=== PATIENT | male | born 1950 | race Caucasian/White ===

== ENCOUNTER 2019-11-22 09:11 | Emergency (ER) | payer OTHER ==
[2019-11-22] MEDS ORDERED: LIDOCAINE 1% MPF 30 ML VIAL ONE (09:54)
--- OUTSIDE RECORDS SUMMARY | 2019-11-22 09:59 | XMS REPORT | Clinical Summary ---
:1950 Author Organization [facility] Address [address] [place] [address] Care Team Providers Name Role Phone Unavailable Primary Care Provider Unavailable Allergies Active Allergy Reactions Severity Noted Date Comments Ciprofloxacin 09/24/2016 Vancomycin Analogues 09/24/2016 Medications Medication Sig Dispensed Refills Start Date End Date Status nystatin-triamcinol Apply 1 application 0 Active one (MYCOLOG II) topically 2 (two) 100,000-0.1 times daily. unit/g-% cream metFORMIN Take 1,000 mg by 0 Act moreno (GLUCOPHAGE) 1000 mouth 2 (two) times MG tablet daily with breakfast and dinner. hydrALAZINE Take 50 mg by mouth 3 0 Active (APRESOLINE) 50 MG (three) times daily. tablet insulin glargine Inject 60 Units 0 Active (LANTUS) 100 subcutaneously every unit/mL injection morning Use as directed . acetaminophen-codei Take 1 tablet by 20 tablet 0 09/26/2016 Active ne (TYLENOL #3) mouth every 6 (six) 300-30 mg per hours as needed for tablet Pain. Max Daily Amount: 4 tablets Active Problems Problem Noted Date Epididymo-orchitis, acute 09/24/2016 Family History Medical History Relation Name Comments Stroke Father Diabetes Mother Hypertension Mother Relation Name Status Comments Father Mother Social History Tobacco Use Types Packs/Day Years Used Date Current Every Day Smoker Cigarettes 0.5 40 Smokeless Tobacco: Never Used Tobacco Cessation: Ready to Quit: No Alcohol Use Drinks/Week oz/Week Comments No Former occasiona l alcohol use, quit 30 years ago Sex Assigned at Date Recorded Not on file Job Start Date Occupation Industry Not on file Not on file Not on file Travel History Travel Start Travel End No recent travel history available. Last Filed Vital Signs Not on file Plan of Treatment Not on file Results Not on fileafter 11/21/2018 Insurance Payer Benefit Plan / Group Subscriber ID Type Phone A ddress MEDICARE MEDICARE A B xxxxxxxxxx Medicare Advance Directives For more information, please contact:[address] [phone] Code Status Date Activated Date Inactivated Comments Full Code 09/24/2016 4:14 AM 09/26/2016 11:47 AM This code status was determined by: Patient
--- OUTSIDE RECORDS SUMMARY | 2019-11-22 10:00 | XMS REPORT | Continuity of Care Document ---
:1950 Author Organization [facility] t Address [address] [place] [address] [address] [place] [address] Care Team Providers Name Role Phone HUBER PATEL Attending Clinician Unavailable EVELINE PATEL Admitting Clinician Unavailable Problems Condition Condition Condition Status Onset Resolution Last Treating Co mments Source Name Details Category Date Date Treatment Clinician Date Epididymo- Epididymo- Disease Active [facility] orchitis, orchitis, 09-24 [facility] - acute acute 00:00: Medical 00 Center Allergies, Adverse Reactions, Alerts Allergy Allergy Status Severity Reaction(s) Onset Inactive Treating Comm ents Source Name Type Date Date Clinician Ciproflo Propensi Active [facility] 09[facility] - adverse 00:00: Medical reaction 00 [place] Vancomyc Propensi Active [facility] to 09-24 [facility] - Analogue adverse 00:00: Medical s reaction 00 [place] Family History Family Member Diagnosis Comments Start Date Stop Date Source Natural father Stroke [facility] Natural mother Diabetes [facility] Natural mother Hypertension [facility] Social History Social Habit Start Date Stop Date Quantity Comments Source History of tobacco Cigarette Smoker [facility] - use [facility] Sex Assigned At [facility] Cigarettes smoked 2016-09-26 2016-09-26 [facility] - current (pack per 00:00:00 00:00:00 Medical Center day) - Reported Cigarette 2016-09-26 2016-09-26 [facility] - pack-years 00:00:00 00:00:00 Medical Center Alcohol Comment 2016-09-24 2016-09-[address] [facility]00 alcohol use, quit [facility] Center 30 years ago Smoking Status Start Date Stop Date Source Current every day smoker 2016-09-26 00:00:[address] [facility] Center Medications Ordered Filled Start Stop Current Ordering Indication Dosage Frequency Signature Comments Components Source Medication Medication Date Date Medication? Clinician (SIG) Name Name acetaminoph Yes 1{tbl} Take [address] en-codeine 4-24 tablet by [place] [facility] - (TYLENOL 00:00: mouth Medical #3) 300-30 00 every 6 Center mg per (six) tablet hours as needed for Pain. Max Daily Amount: 4 tablets nystatin-tr Yes 1{appli Q.5D Apply [address] [facility] iamcinolone 4-22 cation} applicatio Keturah - (MYCOLOG 10:39: n Medical II) 16 topically Center 100,000-0.1 2 (two) unit/g-% times cream daily. metFORMIN Yes 1000mg Take 1,[address] [facility] (GLUCOPHAGE 4-22 mg by [facility] - ) 1000 MG 10:39: mouth 2 Medic al tablet 16 (two) Center times daily with breakfast and dinner. hydrALAZINE Yes 50mg [id number] Take [address] [facility] [address] (APRESOLINE 4-22 [id number] by mouth 3 [facility] - ) 50 MG 10:39: 3D (three) Medical tablet 16 times Center daily. insulin Yes 60U QD Inject 60 [facility] glargine 4-22 Units [facility] - (LANTUS) 10:39: subcutaneo Med ical 100 unit/mL 16 usly every Ce nter injection morning Use as directed . Procedures This patient has no known procedures. Results Test Description Test Time Test Comments Results Result Comments Source TISSUE EXAM 2016-09-30 17:15:00 Test Item Value Reference Range Interpretation Comme nts LAB AP CPT CODE (TIO) (test code = 9649) [id number] POCT-GLUCOSE [id number] 07:33:00 Test Item Value Reference Range Interpretation Comments POC-GLUCOSE METER 119 mg/dL 70-110 H TESTED AT [place] [address] ([facility]IO) (test code = [place] 1538) [id number] BASIC METABOLIC [id number] 04:39:00 Test Item Value Reference Range Interpretation Comments SODIUM (BEAKER) 137 meq/L 136-145 (test code = 381) POTASSIUM (BEAKER) 3.2 meq/L 3.5-5.1 L (test code = 379) CHLORIDE (BEAKER) 107 meq/L 98-107 (test code = 382) CO2 (BEAKER) (test 23 meq/L 22-29 code = 355) BLOOD UREA NITROGEN 10 mg/dL 7-21 (BEAKER) (test code = 354) CREATININE (BEAKER) 0.66 mg/dL 0.57-1.25 (test code = 358) GLUCOSE RANDOM 131 mg/dL 70-105 H (BEAKER) (test code = 652) CALCIUM (BEAKER) 8.1 mg/dL 8.4-10.2 L (test code = 697) EGFR (BEAKER) (test 120 mL/min/1.73 ESTIM ATED GFR IS code = 1092) sq m NOT ACCURATE CREATININE CLEARANCE IN PREDICTING GLOMERULAR FILTRATION RATE . ESTIMATED GFR I S NOT APPLICABLE FOR DIALYSIS PATIEN TS. CBC W/PLT COUNT & AUTO [id number] 04:32:00 Test Item Value Reference Range Interpretation Comments WHITE BLOOD CELL COUNT (BEAKER) 14.4 K/ L 4.0-10.0 H (test code = 775) RED BLOOD CELL COUNT (BEAKER) 4.36 M/ L 4.20-5.80 (test code = 761) HEMOGLOBIN (BEAKER) (test code = 13.1 GM/DL 13.0-16.8 410) HEMATOCRIT (BEAKER) (test code = 40.3 % 40.0-50.0 411) MEAN CORPUSCULAR VOLUME (BEAKER) 92.5 fL 82.0-98.0 (test code = 753) MEAN CORPUSCULAR HEMOGLOBIN 30.1 pg 27.0-33.0 (BEAKER) (test code = 751) MEAN CORPUSCULAR HEMOGLOBIN CONC 32.6 GM/DL 32.0-36.0 (BEAKER) (test code = 752) RED CELL DISTRIBUTION WIDTH 11.7 % 10.3-14.2 (BEAKER) (test code = 412) PLATELET COUNT (BEAKER) (test 223 K/CU MM 150-430 code = 756) MEAN PLATELET VOLUME (BEAKER) 8.7 fL 6.5-10.5 (test code = 754) NUCLEATED RED BLOOD CELLS 0 /100 WBC 0-0 (BEAKER) (test code = 413) NEUTROPHILS RELATIVE PERCENT 77 % (BEAKER) (test code = 429) LYMPHOCYTES RELATIVE PERCENT 14 % (BEAKER) (test code = 430) MONOCYTES RELATIVE PERCENT 8 % (BEAKER) (test code = 431) EOSINOPHILS RELATIVE PERCENT 1 % (BEAKER) (test code = 432) BASOPHILS RELATIVE PERCENT 0 % (BEAKER) (test code = 437) NEUTROPHILS ABSOLUTE COUNT 11.10 K/ L 1.80-8.00 H (BEAKER) (test code = 670) LYMPHOCYTES ABSOLUTE COUNT 1.99 K/ L 1.48-4.50 (BEAKER) (test code = 414) MONOCYTES ABSOLUTE COUNT (BEAKER) 1.11 K/ L 0.00-1.30 (test code = 415) EOSINOPHILS ABSOLUTE COUNT 0.21 K/ L 0.00-0.50 (BEAKER) (test code = 416) BASOPHILS ABSOLUTE COUNT (BEAKER) 0.03 K/ L 0.00-0.20 (test code = 417) 0.00POCT-GLUCOSE [id number] 21:11:00 Test Item Value Reference Range Interpretation Comments POC-GLUCOSE METER 156 mg/dL 70-110 H TESTED AT [place] [address] ([facility]) (test code = [facility] [place] [address]) [id number] POCT-GLUCOSE [id number] 17:56:00 Test Item Value Reference Range Interpretation Comments POC-GLUCOSE METER 301 mg/dL 70-110 H Notified Andrea Jiménez MD/TESTED ([facility]) (test code = AT [place] [address]) [facility] 7[address] 0 POCT-GLUCOSE [id number] 17:47:00 Test Item Value Reference Range Interpretation Comments POC-GLUCOSE METER 266 mg/dL 70-110 H TESTED AT [place] [address] ([facility]) (test code = [facility] [place] [address]) [id number] POCT-GLUCOSE [id number] 13:52:00 Test Item Value Reference Range Interpretation Comments POC-GLUCOSE METER 324 mg/dL 70-110 H Notified R N MD/TESTED (BEAKER) (test code = AT [facility] [address] [facility] [place] [address] 0 URINE [id number] 12:36:00 Test Item Value Reference Range Interpretation Comments CULTURE (BEAKER) (test code = 1095) No growth HEMOGLOBIN [id number] 08:39:00 Test Item Value Reference Range Interpretation Comments HEMOGLOBIN A1C (BEAKER) (test code = 12.1 % 4.3-6.1 H 368) POCT-GLUCOSE [id number] 08:02:00 Test Item Value Reference Range Interpretation Comments POC-GLUCOSE METER 315 mg/dL 70-110 H Notified R N MD/TESTED (BEAKER) (test code = AT [facility] [address] [facility]) [place] [address] 0 CBC W/PLT COUNT & AUTO [id number] 05:04:00 Test Item Value Reference Range Interpretation Comments WHITE BLOOD CELL COUNT (BEAKER) 22.7 K/ L 4.0-10.0 H (test code = 775) RED BLOOD CELL COUNT (BEAKER) 4.56 M/ L 4.20-5.80 (test code = 761) HEMOGLOBIN (BEAKER) (test code = 14.2 GM/DL 13.0-16.8 410) HEMATOCRIT (BEAKER) (test code = 42.0 % 40.0-50.0 411) MEAN CORPUSCULAR VOLUME (BEAKER) 92.1 fL 82.0-98.0 (test code = 753) MEAN CORPUSCULAR HEMOGLOBIN 31.1 pg 27.0-33.0 (BEAKER) (test code = 751) MEAN CORPUSCULAR HEMOGLOBIN CONC 33.8 GM/DL 32.0-36.0 (BEAKER) (test code = 752) RED CELL DISTRIBUTION WIDTH 12.9 % 10.3-14.2 (BEAKER) (test code = 412) PLATELET COUNT (BEAKER) (test 203 K/CU MM 150-430 code = 756) MEAN PLATELET VOLUME (BEAKER) 9.2 fL 6.5-10.5 (test code = 754) NUCLEATED RED BLOOD CELLS 0 /100 WBC 0-0 (BEAKER) (test code = 413) NEUTROPHILS RELATIVE PERCENT 85 % (BEAKER) (test code = 429) LYMPHOCYTES RELATIVE PERCENT 8 % (BEAKER) (test code = 430) MONOCYTES RELATIVE PERCENT 7 % (BEAKER) (test code = 431) EOSINOPHILS RELATIVE PERCENT 0 % (BEAKER) (test code = 432) BASOPHILS RELATIVE PERCENT 0 % (BEAKER) (test code = 437) NEUTROPHILS ABSOLUTE COUNT 19.30 K/ L 1.80-8.00 H (BEAKER) (test code = 670) LYMPHOCYTES ABSOLUTE COUNT 1.85 K/ L 1.48-4.50 (BEAKER) (test code = 414) MONOCYTES ABSOLUTE COUNT (BEAKER) 1.53 K/ L 0.00-1.30 H (test code = 415) EOSINOPHILS ABSOLUTE COUNT 0.03 K/ L 0.00-0.50 (BEAKER) (test code = 416) BASOPHILS ABSOLUTE COUNT (BEAKER) 0.01 K/ L 0.00-0.20 (test code = 417) POCT-GLUCOSE [id number] 01:09:00 Test Item Value Reference Range Interpretation Comments POC-GLUCOSE METER 274 mg/dL 70-110 H TESTED AT [place] [address] ([facility]) (test code = [facility] 1538) [id number] POCT-GLUCOSE [id number] 22:45:00 Test Item Value Reference Range Interpretation Comments POC-GLUCOSE METER 275 mg/dL 70-110 H TESTED AT [place] [address] ([facility]) (test code = [facility] 1538) [id number] POCT-GLUCOSE [id number] 17:06:00 Test Item Value Reference Range Interpretation Comments POC-GLUCOSE METER 245 mg/dL 70-110 H TESTED AT [place] [address] ([facility]) (test code = [facility] 1538) [id number] (MANUAL DIFFERENTIAL)2016-09-24 16:50:00 Test Item Value Reference Range Interpretation Comments NEUTROPHILS - REL (DIFF) (BEAKER) 81 % (test code = 1359) LYMPHOCYTES - REL (DIFF) (BEAKER) 7 % (test code = 1360) MONOCYTES - REL (DIFF) (BEAKER) 7 % (test code = 1361) BANDS - REL (DIFF) (BEAKER) (test 5 % 0-10 code = 1348) NEUTROPHILS - ABS (DIFF) (BEAKER) 18.31 K/ L 1.80-8.00 H (test code = 1365) LYMPHOCYTES - ABS (DIFF) (BEAKER) 1.58 K/ L 1.48-4.50 (test code = 1366) MONOCYTES - ABS (DIFF) (BEAKER) 1.58 K/ L 0.00-1.30 H (test code = 1367) BANDS-ABS (DIFF) (BEAKER) (test 1.1 K/ L 0.0-0.8 H code = 1349) TOTAL COUNTED (BEAKER) (test code 100 = 1351) BANDS + SEGMENTED NEUTROPHILS 19.44 (BEAKER) (test code = 1352) WBC MORPHOLOGY (BEAKER) (test code Normal = 487) PLT MORPHOLOGY (BEAKER) (test code Normal = 486) RBC MORPHOLOGY (BEAKER) (test code Normal = 762) CBC W/PLT COUNT & AUTO [id number] 16:47:00 Test Item Value Reference Range Interpretation Comments WHITE BLOOD CELL COUNT (BEAKER) 22.6 K/ L 4.0-10.0 H (test code = 775) RED BLOOD CELL COUNT (BEAKER) 4.82 M/ L 4.20-5.80 (test code = 761) HEMOGLOBIN (BEAKER) (test code = 14.9 GM/DL 13.0-16.8 410) HEMATOCRIT (BEAKER) (test code = 44.9 % 40.0-50.0 411) MEAN CORPUSCULAR VOLUME (BEAKER) 93.3 fL 82.0-98.0 (test code = 753) MEAN CORPUSCULAR HEMOGLOBIN 31.0 pg 27.0-33.0 (BEAKER) (test code = 751) MEAN CORPUSCULAR HEMOGLOBIN CONC 33.3 GM/DL 32.0-36.0 (BEAKER) (test code = 752) RED CELL DISTRIBUTION WIDTH 13.0 % 10.3-14.2 (BEAKER) (test code = 412) PLATELET COUNT (BEAKER) (test 205 K/CU MM 150-430 code = 756) MEAN PLATELET VOLUME (BEAKER) 9.4 fL 6.5-10.5 (test code = 754) NUCLEATED RED BLOOD CELLS 0 /100 WBC 0-0 (BEAKER) (test code = 413) 0.000.530.000.000.560.000.000.000.00POCT-GLUCOSE [id number] 11:27:00 Test Item Value Reference Range Interpretation Comments POC-GLUCOSE METER 303 mg/dL 70-110 H TESTED AT [facility] [address] (BEAKER) (test code = [place] 1538) [id number] URINALYSIS W/ [id number] 08:29:00 Test Item Value Reference Range Interpretation Comments COLOR (BEAKER) (test code = 470) Yellow CLARITY (BEAKER) (test code = Clear 469) SPECIFIC GRAVITY UA (BEAKER) 1.026 1.001-1.035 (test code = 468) PH UA (BEAKER) (test code = 467) 5.5 5.0-8.0 PROTEIN UA (BEAKER) (test code = 50 mg/dL Negative A 464) GLUCOSE UA (BEAKER) (test code = >1000 mg/dL Negative A 365) KETONES UA (BEAKER) (test code = 100 mg/dL Negative A 371) BILIRUBIN UA (BEAKER) (test code Negative Negative = 462) BLOOD UA (BEAKER) (test code = Trace Negative A 461) NITRITE UA (BEAKER) (test code = Negative Negative 465) LEUKOCYTE ESTERASE UA (BEAKER) Small Negative A (test code = 466) UROBILINOGEN UA (BEAKER) (test 0.2 mg/dL 0.2-1.0 code = 463) RBC UA (BEAKER) (test code = 519) 3 /HPF WBC UA (BEAKER) (test code = 520) 29 /HPF MUCUS (BEAKER) (test code = 1574) Rare SQUAMOUS EPITHELIAL (BEAKER) 1 /HPF (test code = 516) HYALINE CASTS (BEAKER) (test code 3 /LPF = 514) SOURCE(BEAKER) (test code = 2795) POCT-GLUCOSE [id number] 07:44:00 Test Item Value Reference Range Interpretation Comments POC-GLUCOSE METER 273 mg/dL 70-110 H TESTED AT [facility] 67[address] (BEAKER) (test code = [place] 1538) [id number] HEPATIC FUNCTION [id number] 06:36:00 Test Item Value Reference Range Interpretation Comments TOTAL PROTEIN (BEAKER) (test code = 6.4 gm/dL 6.0-8.3 770) ALBUMIN (BEAKER) (test code = 1145) 3.7 g/dL 3.5-5.0 BILIRUBIN TOTAL (BEAKER) (test code 0.7 mg/dL 0.2-1.2 = 377) BILIRUBIN DIRECT (BEAKER) (test 0.3 mg/dL 0.1-0.5 code = 706) ALKALINE PHOSPHATASE (BEAKER) (test 76 U/L 40-150 code = 346) AST (SGOT) (BEAKER) (test code = 16 U/L 5-34 353) ALT (SGPT) (BEAKER) (test code = 18 U/L 6-55 347) BASIC METABOLIC [id number] 06:36:00 Test Item Value Reference Range Interpretation Comments SODIUM (BEAKER) 135 meq/L 136-145 L (test code = 381) POTASSIUM (BEAKER) 3.6 meq/L 3.5-5.1 (test code = 379) CHLORIDE (BEAKER) 105 meq/L 98-107 (test code = 382) CO2 (BEAKER) (test 19 meq/L 22-29 L code = 355) BLOOD UREA NITROGEN 7 mg/dL 7-21 (BEAKER) (test code = 354) CREATININE (BEAKER) 0.66 mg/dL 0.57-1.25 (test code = 358) GLUCOSE RANDOM 276 mg/dL 70-105 H (BEAKER) (test code = 652) CALCIUM (BEAKER) 8.5 mg/dL 8.4-10.2 (test code = 697) EGFR (BEAKER) (test 120 mL/min/1.73 ESTIM ATED GFR IS code = 1092) sq m NOT ACCURATE CREATININE CLEARANCE IN PREDICTING GLOMERULAR FILTRATION RATE . ESTIMATED GFR I S NOT APPLICABLE FOR DIALYSIS PATIEN TS.
--- NOTE | 2019-11-22 10:26 | ER ---
Nurse's Notes [facility] Name: Yaya Estrada Age: 69 yrs Sex: Male : 1950 Arrival Date: 11/22/2019 Time: 09:14 Bed 13 Private MD: Diagnosis: Cutaneous abscess of back [any part, except buttock] Presentation: 11/21 09:41 Chief complaint: Patient states: right upper back cyst that is ongoing for 2 years. sv Reports he has had it drained by the clinic but the pain and swelling are worse. Pt is currently on Bactrim. Coronavirus screen: Proceed with normal triage. Patient denies a cough. Patient denies shortness of breath or difficulty breathing. Patient denies measured and/or subjective temperature greater than 100.4F prior to today's visit. Patient denies travel on a cruise ship or to a country the [facility] currently lists as an affected area. Patient denies contact with known and/or suspected case of COVID-19. Ebola Screen: No symptoms or risks identified at this time. Initial Sepsis Screen: Does the patient meet any 2 criteria? HR > 90 bpm. No. Patient's initial sepsis screen is negative. Does the patient have a suspected source of infection? Yes: Skin breakdown/wound. Risk Assessment: Do you want to hurt yourself or someone else? Patient reports no desire to harm self or others. Onset of symptoms was 2018. 09:41 Method Of Arrival: Ambulatory 09:41 Acuity: NALLELY 3 sv Triage Assessment: 09:41 General: Appears in no apparent distress. uncomfortable, well developed, Behavior is sv calm, cooperative, appropriate for age. Pain: Complains of pain in right subscapular area Pain currently is 8 out of 10 on a pain scale. Pain began 2 years ago Is continuous. Neuro: Level of Consciousness is awake, alert, obeys commands, Oriented to person, place, time, situation, Moves all extremities. Full function Gait is steady, Speech is normal. Respiratory: Airway is patent Respiratory effort is even, unlabored, Respiratory pattern is regular, symmetrical. Derm: Skin is intact, Skin is pink, warm \T\ dry. Abscess located on right subscapular area is golf ball sized, has no drainage, is red, is raised. Musculoskeletal: Range of motion: intact in all extremities. Historical: - Allergies: 09:43 Ciprofloxacin; sv 09:43 Vancomycin; sv - PMHx: 09:43 Diabetes - IDDM; Hypertension; sv - PSHx: 09:43 testicular torsion; sv - Immunization history:: Adult Immunizations up to date, Flu vaccine is not up to date. - Social history:: Smoking status: Patient reports the use of cigarette tobacco products, smokes one-half pack cigarettes per day. Screenin:41 Abuse screen: Denies threats or abuse. Denies injuries from another. Nutritional sv screening: No deficits noted. Tuberculosis screening: No symptoms or risk factors identified. Fall Risk None identified. Assessment: 10:25 Reassessment: Patient appears in no apparent distress at this time. No changes from sv previously documented assessment. Patient and/or family updated on plan of care and expected duration. Pain level reassessed. Patient is alert, oriented x 3, equal unlabored respirations, skin warm/dry/pink. Vital Signs: 09:41 BP 141 / 98; Pulse 94; Resp 16; Temp 98.2; Pulse Ox 97% ; Weight 68.04 kg; Height 5 ft. sv 5 in. (165.10 cm); Pain 8/10; 10:26 BP 133 / 79; Pulse 73; Resp 16; Pulse Ox 97% ; sv 09:41 Body Mass Index 24.96 (68.04 kg, 165.10 cm) sv ED Course: 09:14 Patient arrived in ED. as 09:16 Margie Mcclelland RN is Primary Nurse. sv 09:17 Carina Lloyd FNP-C is PSYCHIATRICP. kb 09:17 Neeraj Villar MD is Attending Physician. kb 09:41 Arm band placed on. sv 09:41 Patient has correct armband on for positive identification. Placed in gown. Bed in low sv position. Call light in reach. Adult w/ patient. Pulse ox on. NIBP on. Door closed. Head of bed elevated. :43 Triage completed. sv 10:25 Assist provider with I \T\ D: of an abscess on right subscapular Set up I\T\D tray. sv Performed by Carina GONZALEZ Wound packed. iodoform gauze, Dressing with 4X4s, tape non-adherent gauze Patient tolerated well. Patient did not have IV access during this emergency room visit. Administered Medications: 10:26 Drug: Lidocaine (1 %) 1 vials {Note: given to Carina HIDE OR SKIN BUFFER for procedure.} Volume: 5 ml; sv Route: Infiltration; Outcome: 10: Discharge ordered by . luis miguel 10:36 Discharged to home ambulatory, with family. sv 10:36 Condition: stable 10:36 Condition: improved 10:36 Discharge instructions given to patient, family, Instructed on discharge instructions, follow up and referral plans. wound care, Demonstrated understanding of instructions, follow-up care, wound care. 10:36 Patient left the ED. sv Signatures: Carina Lloyd, Margie Sanderson RN RN Josefa Umanzor as Corrections: (The following items were deleted from the chart) 10:36 10:25 Assist provider with I \T\ D: of an abscess on right subscapular Set up I\T\D tray. sv Performed by Carina GONZALEZ Wound packed. iodoform gauze, Dressing with 4X4s, tape Patient tolerated well. sv
--- NOTE | 2019-11-22 10:26 | EDPHYS ---
Physician Documentation [facility] Name: Yaya Estrada Age: 69 yrs Sex: Male : 1950 Arrival Date: 11/22/2019 Time: 09:14 Bed 13 Private MD: ED Physician Neeraj Villar HPI: 11/21 09:56 This 69 yrs old Male presents to ER via Ambulatory with complaints of Cyst. kb 09:56 the patient presents with a swollen area of the right subscapular area. Description: kb fluctuant, swollen. Onset: The symptoms/episode began/occurred 3 year(s) ago. Possible cause(s): unknown. Associated signs and symptoms: Pertinent positives: erythema, swelling. Modifying factors: the symptoms are alleviated by nothing, the symptoms are aggravated by pressure. Severity of symptoms: At their worst the symptoms were moderate, in the emergency department the symptoms are unchanged. The patient has not experienced similar symptoms in the past. The patient has not recently seen a physician. Pt reports cyst on back for 3 years. States it popped once about 2 years ago. Came in now because it is starting to get red and it is causing more pain. Historical: - Allergies: 09:43 Ciprofloxacin; sv 09:43 Vancomycin; sv - PMHx: 09:43 Diabetes - IDDM; Hypertension; sv - PSHx: 09:43 testicular torsion; sv - Immunization history:: Adult Immunizations up to date, Flu vaccine is not up to date. - Social history:: Smoking status: Patient reports the use of cigarette tobacco products, smokes one-half pack cigarettes per day. ROS: 09:55 Constitutional: Negative for fever, chills, and weight loss, Cardiovascular: Negative kb for chest pain, palpitations, and edema, Respiratory: Negative for shortness of breath, cough, wheezing, and pleuritic chest pain, Abdomen/GI: Negative for abdominal pain, nausea, vomiting, diarrhea, and constipation, Back: Negative for injury and pain, MS/Extremity: Negative for injury and deformity, Neuro: Negative for headache, weakness, numbness, tingling, and seizure. 09:55 Skin: Positive for abscess, of the right subscapular area. Exam: 09:55 Constitutional: This is a well developed, well nourished patient who is awake, alert, kb and in no acute distress. Head/Face: Normocephalic, atraumatic. Chest/axilla: Normal chest wall appearance and motion. Nontender with no deformity. No lesions are appreciated. Cardiovascular: Regular rate and rhythm with a normal S1 and S2. No gallops, murmurs, or rubs. Normal PMI, no JVD. No pulse deficits. Respiratory: Lungs have equal breath sounds bilaterally, clear to auscultation and percussion. No rales, rhonchi or wheezes noted. No increased work of breathing, no retractions or nasal flaring. Abdomen/GI: Soft, non-tender, with normal bowel sounds. No distension or tympany. No guarding or rebound. No evidence of tenderness throughout. MS/ Extremity: Pulses equal, no cyanosis. Neurovascular intact. Full, normal range of motion. Neuro: Awake and alert, GCS 15, oriented to person, place, time, and situation. Cranial nerves II-XII grossly intact. Motor strength 5/5 in all extremities. Sensory grossly intact. Cerebellar exam normal. Normal gait. 09:55 Skin: abscess, that is moderate sized, golf ball sized, of the right subscapular area, with fluctuance, that is moderate. Vital Signs: 09:41 BP 141 / 98; Pulse 94; Resp 16; Temp 98.2; Pulse Ox 97% ; Weight 68.04 kg; Height 5 ft. sv 5 in. (165.10 cm); Pain 8/10; 10:26 BP 133 / 79; Pulse 73; Resp 16; Pulse Ox 97% ; sv 09:41 Body Mass Index 24.96 (68.04 kg, 165.10 cm) sv MDM: 09:17 Patient medically screened. kb 09:55 Data reviewed: vital signs, nurses notes. Data interpreted: Pulse oximetry: on room air kb is 97 %. Interpretation: normal. 10:25 Counseling: I had a detailed discussion with the patient and/or guardian regarding: the kb historical points, exam findings, and any diagnostic results supporting the discharge/admit diagnosis, the need for outpatient follow up, a general surgeon, to return to the emergency department if symptoms worsen or persist or if there are any questions or concerns that arise at home. 11/21 09:31 Order name: I\T\D Setup; Complete Time: 09:53 kb Administered Medications: 10:26 Drug: Lidocaine (1 %) 1 vials {Note: given to Carina [employer] for procedure.} Volume: 5 ml; sv Route: Infiltration; Disposition: 14:58 Co-signature as Attending Physician, Neeraj Villar MD I agree with the assessment and kdr plan of care. Disposition: 11/22/19 10:26 Discharged to Home. Impression: Cutaneous abscess of back [any part, except buttock]. - Condition is Stable. - Discharge Instructions: Skin Abscess, [id number], Incision and Drainage, Care After. - Medication Reconciliation Form, Thank You Letter, Antibiotic Education, Prescription Opioid Use form. - Follow up: Emergency Department; When: As needed; Reason: Worsening of condition. Follow up: Private Physician; When: 2 - 3 days; Reason: Recheck today's complaints, Continuance of care, Re-evaluation by your physician. Signatures: Carina Lloyd, CARLOS KRISHNAMURTHY-Margie Sena RN RN sv Rittger, Kevin, MD MD [facility] Corrections: (The following items were deleted from the chart) 10:36 10:26 11/22/2019 10:26 Discharged to Home. Impression: Cutaneous abscess of back [any sv part, except buttock]. Condition is Stable. Forms are Medication Reconciliation Form, Thank You Letter, Antibiotic Education, Prescription Opioid Use. Follow up: Emergency Department; When: As needed; Reason: Worsening of condition. Follow up: Private Physician; When: 2 - 3 days; Reason: Recheck today's complaints, Continuance of care, Re-evaluation by your physician. kb
[2019-11-22 10:42] VITALS: TEMP 98.2; O2SAT 97
[2019-11-22 10:43] VITALS: BP 133/79
== END 2019-11-22 10:36 | disposition home or self-care (01) ==
LOC: ER 09:11
PROC: 0J970ZZ Drainage of Back Subcutaneous Tissue and Fascia, Open Approach (ICD-10-PCS; principal; 2019-11-22)
DX: L02.212 Cutaneous abscess of back [any part, except buttock and flank] (principal); Z88.1 Allergy status to other antibiotic agents; Z88.3 Allergy status to other anti-infective agents; F17.210 Nicotine dependence, cigarettes, uncomplicated
CPT/HCPCS: 99284

== ENCOUNTER 2024-06-06 12:41 | Emergency (ER) | payer OTHER ==
[2024-06-06] MEDS ORDERED: MORPHINE 2 MG/ML SYR ONE ×2 (14:12→14:51)
[2024-06-06] MEDS ORDERED: NA CHLORIDE 0.9% 500 ML ONE (14:12)
[2024-06-06 14:34] LABS: Absolute Basophils 0.1 K/uL (0-0.5); Absolute Eosinophils 0.1 K/uL (0-0.5); Absolute Lymphocytes (CBC) 2.1 K/uL (0.7-4.9); Absolute Monocytes 0.6 K/uL (0.1-1.3); Absolute Neutrophil 9.4 K/uL (1.8-8.0); Basophils % 0.7 % (0-1.3); Eosinophils % 1.2 % (0-4.4); Hematocrit 38.4 % (39.6-49.0); Hemoglobin 12.7 g/dL (13.6-17.9); Lymphocytes % 16.9 % (15.3-44.8); MCH 28.9 pg (27.0-35.0); MCHC 33.1 g/dL (32.0-36.0); MCV 87.5 fL (80-100); MPV 8.6 fL (7.6-11.3); Monocytes % 4.7 % (3.3-12.3); Neutrophils % 76.5 % (41.7-73.7); Platelets 348 thou/uL (152-406); RBC Red Blood Cell Count 4.39 M/uL (4.33-5.43); Red Cell Distribution Width 16.2 % (12.1-15.2)
--- NOTE | 2024-06-06 14:35 | RAD REPORT ---
EXAM: CT brain without contrast HISTORY: pain COMPARISON: None TECHNIQUE: Multiple contiguous axial images were obtained and a CT of the brain without contrast. Sag ittal and coronal reformats were performed. One or more of the following dose reduction techniques were used: Automated exposure control, adjust ment of the mA and/or kV according to patient size, and/or iterative reconstruction. FINDINGS: No evidence of hydrocephalus, intracranial hemorrhage, or extra-axial fluid collection. Mild brain atrophy with mild periventricular and deep white matter chronic microvascular ischemic ch anges present. No evidence of midline shift or areas of brain edema. The calvarium is intact. The visualized paranasal sinuses and mastoid air cells are essentially clear . IMPRESSION: No evidence of acute intracranial abnormality. EXAM: CT of the cervical spine without contrast HISTORY: Neck pain, injury pain TECHNIQUE: Multiple contiguous axial images were obtained in a CT of the cervical spine without contr ast. Sagittal and coronal reformats were performed. FINDINGS: 2 mm degenerative anterolisthesis C3 on C4. 2 mm degenerative retrolisthesis C6 on C7. No e vidence of acute fracture or subluxation.. This thinning with small endplate osteophytes lower cervical spine. No prevertebral soft tissue swelling is seen. The posterior facets are well aligned. Normal alignment of the skull base with the cervical spine is seen. The lung apices are unremarkable. IMPRESSION: No evidence of acute osseous abnormality of the cervical spine. Moderate lower cervical spondylosis.
--- NOTE | 2024-06-06 14:44 | RAD REPORT ---
EXAM: CT CHEST, ABDOMEN AND PELVIS WITHOUT CONTRAST CLINICAL INDICATION: PAIN TECHNIQUE: CT chest, abdomen and pelvis was performed without contrast, as per department protocol. A xial, sagittal and coronal reconstructions were obtained. One or more of the following dose reduction techniques were used: Automated exposure control, adjustment of the mA and/or kV according to patient size, and/or iterative reconstruction. Unless otherwise specified, incidental findings do not require dedicated imaging follow-up. Examination is limited by the lack of intravenous contrast material. COMPARISON: 01/19/2023 FINDINGS: LUNGS: No evidence of airspace or interstitial process. No nodules. PLEURA: No pleural effusion. No pneumothorax. MEDIASTINUM AND LYMPH NODES: No mediastinal mass or fluid collection. Normal size mediastinal, hilar, and axillary lymph nodes. OSSEOUS STRUCTURES AND CHEST WALL: Intact. LIVER: Normal in size and contour. No focal lesion or biliary dilatation. Cholecystectomy clips. PANCREAS: No mass, ductal dilation, or levi-pancreatic fluid. SPLEEN: Normal size. No focal lesion. ADRENALS: 37 mm low-density mass seen left adrenal gland, unchanged.. KIDNEYS: Normal size and contour. No hydronephrosis. 23 mm exophytic lesion extending from the latera l margin of the left kidney presumably benign cysts. URINARY BLADDER: Normal contour. Barbosa catheter is in place. GASTROINTESTINAL TRACT: No bowel obstruction, free air, significant free fluid or abscess. APPENDIX: Normal appendix. LYMPH NODES: No lymphadenopathy. MUSCULOSKELETAL: Moderate lumbar degenerative changes are present. Mild anterolisthesis L5 on S1 with bilateral chronic spondylolysis. OTHER: IMPRESSION: No acute abnormalities seen in the chest, abdomen or pelvis.
[2024-06-06 14:48] LABS: Albumin 3.1 g/dL (3.4-5.0); Albumin/Globulin Ratio 0.8 (1.1-1.8); Anion Gap 11.5 mEq/L (5.0-15.0); Bilirubin Total 0.2 mg/dL (0.2-1.0); Potassium 4.5 mEq/L (3.5-5.1); Protein, Total 7.1 g/dL (6.4-8.2)
--- NOTE | 2024-06-06 15:00 | EDPHYS ---
Physician Documentation [facility] Name: Yaya Estrada Age: 74 yrs Sex: Male : 1950 Arrival Date: 06/06/2024 Time: 12:41 Bed 15 Private MD: ED Physician Valentín Tejada HPI: 06/06 14:52 This 74 yrs old Male presents to ER via Wheelchair with complaints of Fall purnima Injury. 14:52 Details of fall: The patient fell from an upright position, while walking. Onset: The purnima symptoms/episode began/occurred just prior to arrival. Associated injuries: The patient sustained injury to the head, neck injury, injury to the chest, injury to the abdomen. Severity of symptoms: At their worst the symptoms were mild, moderate, this morning, in the emergency department the symptoms are unchanged. The patient has experienced similar episodes in the past, a few times. Historical: - Allergies: 12:57 Vancomycin; iw 12:57 Ciprofloxacin; iw - PMHx: 12:57 Diabetes - IDDM; Hypertension; iw - Immunization history:: Adult Immunizations up to date. - Infectious Disease History:: Denies. - Social history:: Smoking status: Patient denies any tobacco usage or history of. ROS: 14:54 Constitutional: Negative for fever, chills, and weight loss, Eyes: Negative for injury, purnima pain, redness, and discharge, ENT: Negative for injury, pain, and discharge, Neck: Negative for injury, pain, and swelling, Cardiovascular: Negative for chest pain, palpitations, and edema, Respiratory: Negative for shortness of breath, cough, wheezing, and pleuritic chest pain, : Negative for injury, bleeding, discharge, and swelling, MS/Extremity: Negative for injury and deformity, Skin: Negative for injury, rash, and discoloration, Psych: Negative for depression, anxiety, suicide ideation, homicidal ideation, and hallucinations, Allergy/Immunology: Negative for hives, rash, and allergies, Endocrine: Negative for neck swelling, polydipsia, polyuria, polyphagia, and marked weight changes, Hematologic/Lymphatic: Negative for swollen nodes, abnormal bleeding, and unusual bruising, 14:54 Abdomen/GI: Positive for abdominal pain, of the anterior aspect of left lateral abdomen, posterior aspect of left lateral abdomen and left upper quadrant, 14:54 Back: Positive for decreased range of motion, pain at rest, pain with movement, 14:54 Neuro: Positive for headache, Exam: 14:54 Constitutional: This is a well developed, well nourished patient who is awake, alert, purnima and in no acute distress. Head/Face: Normocephalic, atraumatic. Eyes: Pupils equal round and reactive to light, extra-ocular motions intact. Lids and lashes normal. Conjunctiva and sclera are non-icteric and not injected. Cornea within normal limits. Periorbital areas with no swelling, redness, or edema. ENT: Nares patent. No nasal discharge, no septal abnormalities noted. Tympanic membranes are normal and external auditory canals are clear. Oropharynx with no redness, swelling, or masses, exudates, or evidence of obstruction, uvula midline. Mucous membranes moist. Neck: Trachea midline, no thyromegaly or masses palpated, and no cervical lymphadenopathy. Supple, full range of motion without nuchal rigidity, or vertebral point tenderness. No Meningismus. Cardiovascular: Regular rate and rhythm with a normal S1 and S2. No gallops, murmurs, or rubs. Normal PMI, no JVD. No pulse deficits. Respiratory: Lungs have equal breath sounds bilaterally, clear to auscultation and percussion. No rales, rhonchi or wheezes noted. No increased work of breathing, no retractions or nasal flaring. Abdomen/GI: Soft, non-tender, with normal bowel sounds. No distension or tympany. No guarding or rebound. No evidence of tenderness throughout. Male : Normal genitalia with no discharge or lesions. Skin: Warm, dry with normal turgor. Normal color with no rashes, no lesions, and no evidence of cellulitis. MS/ Extremity: Pulses equal, no cyanosis. Neurovascular intact. Full, normal range of motion., bilateral aka Neuro: Awake and alert, GCS 15, oriented to person, place, time, and situation. Cranial nerves II-XII grossly intact. Motor strength 5/5 in all extremities. Sensory grossly intact. Cerebellar exam normal. Normal gait. Psych: Awake, alert, with orientation to person, place and time. Behavior, mood, and affect are within normal limits. 14:54 Chest/axilla: Inspection: normal, no acute changes, Palpation: tenderness, that is mild, Axilla: are normal, Lymph nodes: lymphadenopathy is not appreciated, 14:54 Abdomen/GI: Inspection: abdomen appears normal, Bowel sounds: normal, Palpation: mild abdominal tenderness, in the anterior aspect of left lateral abdomen, posterior aspect of left lateral abdomen, left upper quadrant and left lower quadrant, Liver: no appreciated palpable abnormalities, Hernia: not appreciated, 14:54 Musculoskeletal/extremity: Exam is negative for acute changes, abrasion, injury, laceration, Vital Signs: 12:56 BP 138 / 80; Pulse 82; Resp 16; Temp 98.1; Pulse Ox 99% on R/A; Weight 63.5 kg; Height iw 5 ft. 6 in. ; 15:22 BP 144 / 79; Pulse 72; Resp 16; Pulse Ox 99% ; Pain 5/10; ll1 12:56 Body Mass Index 22.60 (63.50 kg, 167.64 cm) iw 15:22 Pain Scale: Adult ll1 MDM: 12:48 Medical Screening Exam initiated purnima 15:02 Differential diagnosis: abrasion, closed head injury, contusion, fracture, multiple purnima trauma, sprain, strain. Differential diagnosis: non-specific abd pain, Blunt Chest Trauma Chest Wall Contusion Chest Wall Injury Pleural Effusion Pneumothorax Pulmonary Contusion Rib Fracture. Data reviewed: vital signs, nurses notes, lab test result(s), radiologic studies, CT scan. Consideration of Admission/Observation Escalation of care including admission/observation considered. I considered the following discharge prescriptions or medication management in the emergency department Medications were administered in the Emergency Department. See MAR. Independent interpretation of the following test(s) in the Emergency Department CT Scan: My interpretation is ct trauma. Test considered but Not performed: Ultrasound no abd usg//////FAST. 06/06 13:59 Order name: CBC with Diff; Complete Time: 14:48 [facility] 06/06 13:59 Order name: Comprehensive Metabolic Panel; Complete Time: 14:52 [facility] 06/06 13:59 Order name: Urinalysis w/ reflexes [facility] 06/06 15:13 Order name: Urine Culture [facility] 06/06 13:59 Order name: CT Traumagram (Head C Spine CAP wo con) [facility] 06/06 13:59 Order name: INCENTIVE SPIROMETRY [facility] 06/06 14:02 Order name: Chest Abd Pelvis Wo Con; Complete Time: 14:48 [facility] 06/06 14:03 Order name: Head C Spine Mpr Wo Con; Complete Time: 14:48 EDMS Administered Medications: 14:32 Drug: morphine IVP or IV 2 mg IVP once over 4 mins Route: IVP; Infused Over: 4 mins; ll1 Site: right forearm; 15:22 Follow up: Response: No adverse reaction; Pain is decreased; RASS: Alert and Calm (0) ll1 14:32 Drug: NS 0.9% IV 500 ml 500 ml IV at 1 bolus once; to be given as a bolus over 30 ll1 minutes Volume: 500 ml; Route: IV; Rate: 1 bolus; Site: right forearm; 15:22 Follow up: Response: No adverse reaction; IV Status: Completed infusion; IV Intake: ll1 500ml 14:54 Drug: morphine IVP or IV 2 mg IVP once over 4 mins {Note: RASS 0, pain 7/10.} Route: ll1 IVP; Infused Over: 4 mins; Site: right forearm; 15:21 Follow up: Response: No adverse reaction; Pain is decreased; RASS: Alert and Calm (0) ll1 15:21 Drug: Hydrocodone-Acetaminophen PO (7.5 mg-325 mg) 1 tabs PO once {Note: RASS 0, pain ll1 6/10.} Route: PO; 15:22 Follow up: Response: No adverse reaction; RASS: Alert and Calm (0) ll1 Disposition Summary: 06/06/24 15:00 Discharge Ordered Notes: Location: Home purnima Problem: new purnima Symptoms: have improved purnima Condition: Stable purnima Diagnosis - Fall on same level, unspecified purnima - Contusion of front wall of thorax purnima - Contusion of back wall of thorax purnima - Abdominal tenderness - left side purnima Followup: purnima - With: Private Physician - When: 2 - 3 days - Reason: Recheck today's complaints, Continuance of care, Re-evaluation by your physician Discharge Instructions: - Discharge Summary Sheet purnima - Abdominal Pain, Adult purnima - Chest Contusion, Adult purnima - Fall Prevention in the Home, Adult purnima - How to Use an Incentive Spirometer purnima - Chest Contusion, Adult, [id number] purnima - Abdominal Pain, Adult, [id number] purnima - Fall Prevention in the Home, Adult, [id number] purnima - Incentive Spirometer Record purnima Forms: - Medication Reconciliation Form purnima - Antibiotic Education purnima - Prescription Opioid Use purnima - Patient Portal Instructions purnima - Leadership Thank You Letter [facility] Prescriptions: - Tylenol 325 mg Oral tablet - take 2 tablets ORAL route every 6 hours as needed; 40 tablet; Refills: 0, [facility] Product Selection Permitted - Motrin IB 200 mg Oral tablet - take 2 tablet ORAL route every 6 hours As needed as needed with food; 40 [facility] tablet; Refills: 0, Product Selection Permitted Signatures: Dispatcher [employer] Valentín Field MD MD cha Williams, Irene, RN RN iw Lewis, Lynsay, RN RN ll1
--- NOTE | 2024-06-06 15:00 | ER ---
Nurse's Notes [facility] Name: Yaya Estrada Age: 74 yrs Sex: Male : 1950 Arrival Date: 06/06/2024 Time: 12:41 Bed 15 Private MD: Diagnosis: Fall on same level, unspecified;Contusion of front wall of thorax;Contusion of back wall of thorax;Abdominal tenderness-left side Presentation: 06/06 12:55 Chief complaint: Patient states: pt tripped over his shoes and fell on right side, iw just wants him checked out and to get xrays , he hit his nose and his ribs. 12:55 Acuity: NALLELY 3 iw 12:56 Method Of Arrival: Wheelchair iw 12:56 Coronavirus screen: At this time, the client does not indicate any symptoms associated iw with coronavirus-19. Ebola Screen: No symptoms or risks identified at this time. Initial Sepsis Screen: Does the patient meet any 2 criteria? No. Patient's initial sepsis screen is negative. Does the patient have a suspected source of infection? No. Patient's initial sepsis screen is negative. Risk Assessment: Do you want to hurt yourself or someone else? Patient reports no desire to harm self or others. Onset of symptoms was June 06, 2024. Historical: - Allergies: 12:57 Vancomycin; iw 12:57 Ciprofloxacin; iw - PMHx: 12:57 Diabetes - IDDM; Hypertension; iw - Immunization history:: Adult Immunizations up to date. - Infectious Disease History:: Denies. - Social history:: Smoking status: Patient denies any tobacco usage or history of. Screenin:25 [facility] ED Fall Risk Assessment (Adult) History of falling in the last 3 months, ll1 including since admission No falls in past 3 months (0 pts) Confusion or Disorientation No (0 pts) Intoxicated or Sedated No (0 pts) Impaired Gait Yes (1 pt) Mobility Assist Device Used Yes (1 pt) Altered Elimination No (0 pt) Score/Fall Risk Level 0 - 2 = Low Risk Maintained a safe environment, Hourly rounding (assess needs \T\ fall precautionary measures) done. Abuse screen: Denies threats or abuse. Nutritional screening: No deficits noted. Tuberculosis screening: No symptoms or risk factors identified. Assessment: 13:53 Reassessment: Dr. Tejada at BS. ll1 14:05 General: Appears uncomfortable, Behavior is calm, cooperative, appropriate for age. ll1 Pain: Complains of pain in face Quality of pain is described as aching. Neuro: Reports headache. EENT: Reports pain in nose. Musculoskeletal: Reports pain in L sided rib pain. 14:45 Reassessment: new Barbosa bag applied to catheter for fresh UA sample. ll1 Vital Signs: 12:56 BP 138 / 80; Pulse 82; Resp 16; Temp 98.1; Pulse Ox 99% on R/A; Weight 63.5 kg; Height iw 5 ft. 6 in. ; 15:22 BP 144 / 79; Pulse 72; Resp 16; Pulse Ox 99% ; Pain 5/10; ll1 12:56 Body Mass Index 22.60 (63.50 kg, 167.64 cm) iw 15:22 Pain Scale: Adult ll1 ED Course: 12:44 Patient arrived in ED. mr 12:48 Valentín Tejada MD is Attending Physician. purnima 12:56 Triage completed. iw 12:57 Arm band placed on. iw 13:29 Svitlana Clark, MARTA is Primary Nurse. ll1 14:08 Inserted saline lock: 22 gauge in right forearm, using aseptic technique. Blood ll1 collected. Flushed with 10 mL NS. 14:08 Initial lab(s) drawn, by me, sent to lab. ll1 14:24 Chest Abd Pelvis Wo Con In Process Unspecified. EDMS 14:25 Head C Spine Mpr Wo Con In Process Unspecified. EDMS 14:30 Patient has correct armband on for positive identification. Provided Education on: ER ll1 procedures and process. 14:54 Urinalysis w/ reflexes Sent. ll1 14:55 Urine collected: Barbosa catheter specimen, shlomo colored, Amount Returned: 200mL. ll1 15:23 IV discontinued, intact, bleeding controlled, No redness/swelling at site. Pressure ll1 dressing applied. 15:25 No provider procedures requiring assistance completed. ll1 Administered Medications: 14:32 Drug: morphine IVP or IV 2 mg IVP once over 4 mins Route: IVP; Infused Over: 4 mins; ll1 Site: right forearm; 15:22 Follow up: Response: No adverse reaction; Pain is decreased; RASS: Alert and Calm (0) ll1 14:32 Drug: NS 0.9% IV 500 ml 500 ml IV at 1 bolus once; to be given as a bolus over 30 ll1 minutes Volume: 500 ml; Route: IV; Rate: 1 bolus; Site: right forearm; 15:22 Follow up: Response: No adverse reaction; IV Status: Completed infusion; IV Intake: ll1 500ml 14:54 Drug: morphine IVP or IV 2 mg IVP once over 4 mins {Note: RASS 0, pain 7/10.} Route: ll1 IVP; Infused Over: 4 mins; Site: right forearm; 15:21 Follow up: Response: No adverse reaction; Pain is decreased; RASS: Alert and Calm (0) ll1 15:21 Drug: Hydrocodone-Acetaminophen PO (7.5 mg-325 mg) 1 tabs PO once {Note: RASS 0, pain ll1 6/10.} Route: PO; 15:22 Follow up: Response: No adverse reaction; RASS: Alert and Calm (0) ll1 Medication: 15:26 VIS not applicable for this client. ll1 Intake: 15:22 IV: 500ml; Total: 500ml. ll1 Outcome: 15:00 Discharge ordered by . purnima 15:25 Discharged to home via wheelchair, [facility] 15:25 Condition: stable 15:25 Discharge instructions given to patient, family, Instructed on discharge instructions, follow up and referral plans. medication usage, Demonstrated understanding of instructions, follow-up care, medications, Prescriptions given X 2, 15:26 Patient left the ED. 1 Signatures: Dispatcher [employer] EDCT Valentín Tejada MD MD cha Rivera, Mary, Reg Reg Vani Oakes RN RN iw Lewis, Lynsay, RN RN 1 Corrections: (The following items were deleted from the chart) 12:56 12:55 Chief complaint: Patient states: pt tripped over his shoes and fell on right iw side, just wants him checked out and to get xrays iw
[2024-06-06 15:07] LABS: Specific Gravity 1.019 (1.005-1.030); Sqamous Epithelial None Seen /HPF (None Seen); Urine Bacteria <20 /HPF (<20); Urine Bilirubin NEGATIVE (Negative); Urine Blood 1+ (Negative); Urine Clarity Extremely Turbid (Clear); Urine Color Yellow (Yellow); Urine Crystals Unidentified Few /HPF (None Seen); Urine Culture Reflex Order REFLEXED; Urine Glucose NEGATIVE (Negative); Urine Ketones NEGATIVE (Negative); Urine Microscopic Reflex YN ORDER UMIC; Urine Mucus Slight /HPF (None Seen); Urine Nitrite 2+ (Negative); Urine Protein 3+ (Negative); Urine Urobilinogen Normal (Normal); Urine WBC >50 /HPF (<5); Urine WBC Clump Rare /HPF (None Seen); Urine Yeast (Budding) Trace /HPF (None Seen)
[2024-06-06] MEDS ORDERED: HYDROCODONE/APAP 7.5/325 MG TAB ONE (15:16)
[2024-06-06 15:42] VITALS: TEMP 98.1; O2SAT 99
[2024-06-06 15:45] VITALS: BP 144/79
== END 2024-06-06 15:26 | disposition home or self-care (01) ==
LOC: ER 12:41
DX: S20.219A Contusion of unspecified front wall of thorax, initial encounter (principal); S20.229A Contusion of unspecified back wall of thorax, initial encounter; W01.0XXA Fall on same level from slipping, tripping and stumbling without subsequent striking against object, initial encounter; R10.819 Abdominal tenderness, unspecified site; I10 Essential (primary) hypertension; E11.9 Type 2 diabetes mellitus without complications; Z88.1 Allergy status to other antibiotic agents
CPT/HCPCS: 96361; 87088; 85025; 81001; 87086; 36415; 87077; 87186; 80053; 70450; 71250; 72125; 74176; 96374; 99284; J2270 ×2; J7040

== ENCOUNTER 2024-07-16 05:34 | Day surgery (SDC) | payer OTHER ==
--- NOTE | 2024-07-03 11:39 | RAD REPORT ---
EXAM: Chest Pa And Lat (2 Views) HISTORY: 74 years Male pre op for day surgery COMPARISON: 01/12/2022 FINDINGS: LUNGS/PLEURA: The lungs are clear. No pleural effusions or pneumothorax. No pulmonary edema. MEDIASTINUM: The mediastinal silhouette is within normal limits CARDIAC: The cardiac silhouette is within normal limits. UPPER ABDOMEN: No significant abnormality. BONES: No acute abnormality. LINES/TUBES/OTHER: N/A IMPRESSION: No evidence of acute cardiopulmonary disease.
[2024-07-03 11:51] LABS: Absolute Basophils 0.1 K/uL (0-0.5); Absolute Eosinophils 0.1 K/uL (0-0.5); Absolute Lymphocytes (CBC) 2.5 K/uL (0.7-4.9); Absolute Monocytes 0.6 K/uL (0.1-1.3); Absolute Neutrophil 9.4 K/uL (1.8-8.0); Basophils % 0.4 % (0-1.3); Eosinophils % 1.1 % (0-4.4); Hematocrit 43.8 % (39.6-49.0); Hemoglobin 14.8 g/dL (13.6-17.9); Lymphocytes % 19.5 % (15.3-44.8); MCH 29.2 pg (27.0-35.0); MCHC 33.9 g/dL (32.0-36.0); MCV 86.1 fL (80-100); MPV 9.3 fL (7.6-11.3); Monocytes % 4.8 % (3.3-12.3); Neutrophils % 74.2 % (41.7-73.7); Nucleated Red Blood Cells % 0.1 % (0-0); PT Prothrombin Time 10.9 SECONDS (9.4-12.5); Platelets 431 thou/uL (152-406); Protime INR 1.04; RBC Red Blood Cell Count 5.09 M/uL (4.33-5.43); Red Cell Distribution Width 15.4 % (12.1-15.2)
[2024-07-03 12:12] LABS: Anion Gap 6.5 mEq/L (5.0-15.0); Potassium 4.5 mEq/L (3.5-5.1)
--- NOTE | 2024-07-09 12:40 | EKG ---
Test Date: 2024-07-03 Test Time: 11:47:33 Heel Seat Filler: VIRGEN MEASUREMENT RESULTS: Intervals: Rate: 71 CT: 168 QRSD: 100 QT: 402 QTc: 436 [place]: P: 22 CT: 168 QRS: 62 T: -17 INTERPRETIVE STATEMENTS: Normal sinus rhythm Cannot rule out Inferior infarct, age undetermined Abnormal ECG Compared to ECG 08/11/2017 14:47:17 Myocardial infarct finding now present Electronically Signed On 07-09-24 12:24:10 [employer]OYEE [employer]ATIONS CONSULTANT by Raghavendra Lino
[~2024-07-16 05:34] MED LIST: CEFEPIME 1 GM/VIAL ONE; NA CHLORIDE 0.9% 100 ML ONE
[2024-07-16] MEDS ORDERED: NA CHLORIDE 0.9% 100 ML ONE (05:48)
[2024-07-16] MEDS: NA CHLORIDE 0.9% 1,000 ML ONE (06:00)
[2024-07-16] MEDS: CEFEPIME 1 GM/VIAL ONE (06:05)
[2024-07-16] MEDS ORDERED: ONDANSETRON 4 MG/2 ML VIAL ONE (07:12)
[2024-07-16] MEDS ORDERED: MIDAZOLAM HCL 2 MG/2 ML INJ ONE (07:12)
[2024-07-16] MEDS ORDERED: FENTANYL CITR 100 MCG/2 ML ONE (07:12)
[2024-07-16] MEDS ORDERED: propofoL 200 MG/20 ML VIAL IV ONE (07:12)
[2024-07-16] MEDS: GENTAMICIN 80 MG/100 ML BAG 160 MG/200 ML BAG IV ONE (07:50)
[2024-07-16] MEDS ORDERED: EPHEDRINE SULF 50 MG/ML VIAL ONE (08:08)
--- NOTE | 2024-07-16 09:20 | P.OP ---
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 He was found to have large volume incomplete emptying and eventually a catheter was placed. Additionally, he had issues with recurrent urinary tract infections, and cystoscopy revealed the presence of a foreign body in his bladder. Procedure note: The patient was consented in the preoperative holding area before being transferred to the operative suite where general anesthesia was induced. He had been given cefepime 1 g IV since Monday, 4 days prior to surgery today. He was given an additional 1 g cefepime IV today as well as gentamicin 160 mg IV for antimicrobial prophylaxis. Pneumoboots were provided for DVT prophylaxis. He was placed in the lithotomy position, padded and secured to the table appropriately. The indwelling urethral Barbosa catheter was removed. His genitalia was prepped with Hibiclens and draped in standard fashion. The case has begun using a 22 American rigid cystoscope to traverse the urethra and into the bladder with ease. The foreign bodies in his bladder were again appreciated, and one of them was small enough for me to irrigate via the cystoscope and remove. The other required use of the stone ore crusher device to grasp and break apart and remove in pieces. While calcified in appearance, the foreign body was actually soft and likely the source of persistent infection. As a result, once all the foreign bodies had been removed, I irrigated his bladder via the cystoscope to clear any other traces of bacteria from within his urine. I then remove the cystoscope and passed the 20 American UroLift sheath and visual obturator into his bladder with ease. I surveyed the prostatic urethra on the way end and identified the presence of nodular adenoma that was obstructing the prostatic urethral lumen. I then switched the UroLift visual obturator for the first implant delivery device. This first implant I targeted at the patient's left side of the bladder neck about 1.5 to 2 cm distal to the bladder neck opening. As there was nodular adenoma that was somewhat firm, I utilized the device angled at around a 70 degrees upward angle to grasp the adenoma and elevate it laterally. In this process, I compressed the tissue about 15 degrees before pulling the trigger delivering the needle through the substance of the prostate. I then further compressed the adenoma to ensure the needle tip exited the capsular surface of the prostate. A second pole of the trigger did deployed the capsular tab and partially retract the needle. I then pulled the trigger a third time completely retracting the needle and beginning to tension the suture. I then advanced the scope back toward the midline and then 2 to 3 mm toward the bladder neck opening until the white line of the monofilament was centered in the delivery bay. At this point, I pulled the trigger a fourth time deploying the urethral end piece which did nicely lateralized and embedded within the prostate tissue with several millimeters of prostate tissue beyond it at the bladder neck. Because it did nicely lateralized the prostate tissue at the bladder neck on the left side, I then turned my attention to the patient's right side. I similarly placed an additional implant about 1.5 to 2 cm distal to the bladder neck opening on the right at around the 9 o'clock position which did beautifully open the bladder neck. I then surveyed the channel created using a visual obturator and then placed an additional implant at the apex on the left at around the 2 o'clock position. A contralateral implant was placed on the right at around the 10 o'clock position. I again surveyed the channel created, and there was residual adenoma emanating largely from the patient's left lateral wall between the apex and the base implants. Because this adenoma was somewhat nodular, I first targeted an implant in the mid zone of the prostate at around the 3 to 4 o'clock position, again angled around 70 degrees upward to elevate the adenoma. This fifth implant did nicely lateralized the tissue in that location, and I surveyed the channel again using a visual obturator. There was still some residual adenomatous intrusion emanating from the patient's left lateral wall somewhat above the mid gland implant but also with some apical mid gland intrusion. As a result, I targeted the sixth implant in the mid apical region superior to the mid gland implant to try to achieve both stacking function and management of the apical mid gland intrusion. I was able to beautifully lateralized the tissue in that location making it the sixth and final implant placed, because when I surveyed the channel created again using the visual obturator, with the bladder completely decompressed and no fluid inflow, a beautiful continuous anterior channel was present from the verumontanum into the bladder neck. As a result, I left his bladder full before removing the UroLift sheath and visual obturator. I then replaced a new 18 American Barbosa catheter into his bladder with ease. 15 cc of sterile water was placed in the balloon. The catheter was allowed to decompress and the drainage was crystal clear. It was then connected to a leg bag, and he was taken out of the lithotomy position before being awakened from general anesthesia. He was then transferred to the recovery room in good condition. Complications: None Discharge disposition: Since he is scheduled to receive another 2 days of IV cefepime, I will recommend him to undergo voiding trial tomorrow in the day surgery area. I will ask the nurses to retrograde fill his bladder with 150 to 200 cc sterile H2O/NS and give him an active voiding trial. Per routine, he must void over 50% of the volume instilled or a catheter should be reinserted. Subsequent follow-up should be established in about 1 month per routine. Should he fail to void successfully, urodynamics should be arranged, and if possible, completed prior to follow-up..
[2024-07-16] MEDS: PHENAZOPYRIDINE 100MG TAB PO ONE (10:28)
[2024-07-16] MEDS: OXYBUTYNIN ER 5 MG TAB PO ONE (10:28)
[2024-07-16 12:21] VITALS: BP 130/65; O2SAT 98
[2024-07-16 12:22] VITALS: TEMP 97
== END 2024-07-16 10:46 | disposition home or self-care (01) ==
LOC: OR 05:34
PROVIDERS: ATTEND Urology
PROC: 0TCB8ZZ Extirpation of Matter from Bladder, Via Natural or Artificial Opening Endoscopic (ICD-10-PCS; principal; 2024-07-16 07:30)
PROC: 0T7D8DZ Dilation of Urethra with Intraluminal Device, Via Natural or Artificial Opening Endoscopic (ICD-10-PCS; 2024-07-16 07:30)
DX: N40.1 Benign prostatic hyperplasia with lower urinary tract symptoms (principal); T19.1XXA Foreign body in bladder, initial encounter; N13.8 Other obstructive and reflux uropathy; R33.9 Retention of urine, unspecified; Z87.440 Personal history of urinary (tract) infections
CPT/HCPCS: 93005; 87088; 85025; 87086; 80048; 36415; 85610; 82947 ×2; 87077 ×3; 87186 ×3; 71046; 52310; 52441; 52442 ×5; J2704; J3010; J2405; J7030; J1580; J0692 ×2; J2250

== ENCOUNTER 2025-02-16 14:13 | Inpatient (IN) | payer OTHER ==
[2025-02-16] MEDS ORDERED: ACETAMINOPHEN 500 MG TAB PO PRN (18:36)
[2025-02-16] MEDS ORDERED: ONDANSETRON 4 MG (ODT) TAB PO PRN (18:41)
[2025-02-16] MEDS: DOCUSATE NA 100 MG CAP PO SCH (20:47)
[2025-02-16] MEDS: Meropenem 1,000 MG in NA CHLORIDE 0.9% 100 ML IV SCH (20:47)
[2025-02-16] MEDS: AMINO ACIDS/PROTEIN HYDROLYS 30 ML LIQUID.PKT PO SCH (20:47)
[2025-02-16] MEDS: TICAGRELOR 90 MG TABLET PO SCH (20:47)
[2025-02-16] MEDS: HYDROCODONE/APAP 7.5/325 MG TAB PO PRN (20:48)
[2025-02-16] MEDS: INSULIN REGULAR (HUMAN) 100 UNIT/ML SQ SCH (20:48)
[2025-02-16] MEDS: INSULIN GLARGINE 100 UNIT/ML SQ SCH (20:48)
[2025-02-16 21:23] VITALS: BMI 29.3
[2025-02-17] MEDS ORDERED: TAMSULOSIN 0.4 MG SR CAP PO SCH (01:00)
[2025-02-17 05:22] LABS: Sqamous Epithelial None Seen /HPF (None Seen); Urine Culture Reflex Order NOT NEEDED; Urine Microscopic Reflex YN ORDER UMIC
[2025-02-17 05:52] LABS: Absolute Lymphocytes (CBC) 1.7 K/uL (0.7-4.9); Hematocrit 23.0 % (39.6-49.0); Hemoglobin 7.6 g/dL (13.6-17.9); MCH 28.4 pg (27.0-35.0); MCHC 33.2 g/dL (32.0-36.0); MCV 85.5 fL (80-100); MPV 6.9 fL (7.6-11.3); Nucleated RBC Absolute Count 0.0 (0-0); Nucleated Red Blood Cells % 0.1 % (0-0); RBC Red Blood Cell Count 2.69 M/uL (4.33-5.43); White Blood Count 12.40 thou/uL (4.3-10.9)
[2025-02-17 06:23] LABS: Albumin 2.1 g/dL (3.4-5.0); Anion Gap 9.3 mEq/L (5.0-15.0); BUN Blood Urea Nitrogen 16.0 mg/dL (7-18); Glucose Level 119.0 mg/dL (74-106); Magnesium 2.2 mg/dL (1.6-2.4); Potassium 3.3 mEq/L (3.5-5.1); Prealbumin 12.6 mg/dL (20-40)
[2025-02-17] MEDS: ASPIRIN 81 MG CHEWABLE TABLET PO SCH (08:28)
[2025-02-17] MEDS: ATORVASTATIN 80 MG TAB PO SCH (08:28)
[2025-02-17] MEDS: AMLODIPINE 10 MG TAB PO SCH (08:28)
[2025-02-17] MEDS: FINASTERIDE 5 MG TAB PO SCH (08:28)
[2025-02-17] MEDS: CITALOPRAM 10 MG TABLET PO SCH (08:28)
[2025-02-17] MEDS: NICOTINE 14 MG/PAT TD SCH (08:28)
[2025-02-17] MEDS: AZITHROMYCIN IV 250 MG in NA CHLORIDE 0.9% 250 ML IVPB SCH (08:29)
[2025-02-17] MEDS: HEPARIN 5000 UNIT/ML 1 ML VIAL SQ SCH (08:29)
[2025-02-17] MEDS: GABAPENTIN 100 MG CAP PO SCH (20:00)
[2025-02-17] MEDS: TAMSULOSIN 0.4 MG SR CAP PO SCH (20:00)
--- NOTE | 2025-02-18 04:48 | HP ---
Date of Admission: 02/16/2025 Time: 1 p.m. Chief Complaint: "I had my right foot just cut off. I need to get stronger." History Of Present Illness: Mr. Estrada is a 75-year-old patient with diabetes mellitus, diabetic neuropathy, hypertension, dyslipidemia, who has had gangrene of the right toe for approximately 1 mon , which was unsuccessfully treated conservatively. He was eventually seen in the emergency departm ent and was diagnosed with osteomyelitis and to save the lower extremity proximally. 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 His admission did confirm the osteomyelitis. He had leukoc ytosis, thrombocytosis, and of course peripheral arterial disease along with issues as mentioned incl uding urinary retention and pneumonia. During hospitalization, he did complete clindamycin, linezolid, antibiotics and was switched over to meropenem and azithromycin for pneumonia. Blood sugars were managed with sliding scale. Morphine an d [place] were used for pain. He had a WATSON drain placed. He was seen by the [facility] and had recanalization of the distal superficial femoral artery. As a result, he does have an acute surgical followup requirement to the right foot and the drain placement and his re cent angioplasty site. Furthermore, his complex medical condition requires him to be carefully monit ored. While in the acute care floor, his course was still complicated by significant decreased physical fun ctioning; decreased mobility, where he previously was able to ambulate around his apartment with a fr ont wheeled walker; able to transfer between bedroom, bathroom, kitchen and ambulated about 50 feet. He was previously independent with showering, dressing, and basic activities of daily living. His w latisha does stay overnight with him despite residing in a separate home. Currently, he is at a moderate assistance to contact guard assistance level for bed mobility, moderat e assistance for sge-ip-iecif, and requires maximum assistance for transferring, ambulating with a ri ght below-knee amputation. Requires comprehensive medical management of his acute issues that help h im return towards his baseline level of functioning and reduce the risk of rehospitalization. Past Medical History: As noted above including diabetes mellitus, hypertension, dyslipidemia. Past Surgical History: Cholecystectomy, left arm surgery, stents, removal of gallstones. Allergies: CIPROFLOXACIN, VANCOMYCIN. Medications: Tylenol Extra Strength 500 mg every 6 hours as needed, amino acids, ProSource 30 mL twi ce daily, Norvasc 10 mg daily, aspirin 81 mg daily, Lipitor 80 mg at bedtime, azithromycin 250 mg IV daily, Celexa 10 mg daily, Colace 100 mg twice daily, ferrous sulfate 325 mg daily, Proscar 5 mg maria del carmen y, gabapentin 100 mg twice daily, [place] 7.5/325 every 4 hours as needed, Semglee insulin 10 units at bedtime, meropenem 1000 mg every 12 hours, Hemocyte Plus 1 tablet daily, Nicoderm patch 14 mg patch d aily, Zofran 4 mg every 8 hours as needed, Flomax 0.8 mg at bedtime, Brilinta 90 mg twice daily. Laboratory Studies: White blood cell count 12.4, hemoglobin 7.6, platelets 587. Sodium 141; potassi um 3.3; chloride 112; carbon dioxide 23; BUN 16; creatinine 0.61; glucose 119, up to 171; calcium 8.5 . Magnesium 2.2. Albumin 2.1, prealbumin 12.6. Urinalysis from the , shows 1+ blood, 2+ prote in, otherwise unremarkable. X-ray/imaging: Chest x-ray done on 02/13 shows a 7 cm consolidation in the right lower lobe consiste nt with pneumonia. Stress test done on 02/05 shows no significant abnormalities. Nuclear medicine c ardiac perfusion exam shows moderate sized area of small stress-induced ischemia suspected involving the inferior wall, extending to the apex, and finding on the Lexiscan. Lower extremities CT angiogram on 02/04 shows moderately severe multifocal, multisegmental peripheral vascular disease present. Soft tissue gas along with an area of demineralization involving the great toe as described , likely osteomyelitis. Foot x-ray on 02/02 shows no fracture or dislocation. There is hallux valgu s deformity with mild lateral subluxation of the first proximal phalanx. surrounding the distal phalanx, which may represent . Chest x-ray on 02/02 shows mild left basilar lung op acity including mild infiltrate. Family History: Noncontributory. Social History: No recent alcohol, tobacco, or IV drug use. The patient lives at home with his who is involved in his care. Current Level Of Functioning: Currently, he is able to perform eating with setup assistance, groomin g setup assistance. He is bathing with moderate assistance; upper body dressing, moderate assistance ; lower body dressing and toileting also at a moderate assistance level. Transfer from bed to chair, to wheelchair, and toilet with moderate assistance. He had ambulated with physical thera py, hopping on the left leg with both arms being supported between the hops. Physical Examination: Vital Signs: Blood pressure is 174/74, pulse 76, respiratory rate 18, temperature 98.4, oxygen satur ation 99%. General: Mr. Estrada is resting in bed. He is in no significant distress. Denies any pain per hi s who is at bedside, although at 1 point, the pain is reported at L5, although his said, he has not reported any pain in the stump and no phantom limb pain reported while she was present. HEENT: Otherwise, he is normocephalic, atraumatic. Sclerae anicteric. Oropharynx is pink and moist . Neck: Supple. Extremities: Left lower extremity, no significant edema, cyanosis noted, and the stump is well skinner ged and with good hemostasis. That is right below-knee stump. Rehab And Medical Assessment And Plan: Mr. Sadiq Estrada is a 75-year-old patient admitted to [facility] inpatient rehabilitation unit with impairment category 10, amputation of lower extremity. Impairme nt group code is 05.4 unilateral lower below the knee amputation. Etiologic diagnosis gangrene of [facility] toe of the right foot. His comorbidities do include decreased mobility; decreased physical functio mayte; diabetes mellitus; hypertension; osteomyelitis, on multiple antibiotics; neuropathic pain. He has anemia, urinary retention. In terms of plan, he will have physical, occupational, and if need be for cognitive issues via speech therapy 3.5 hours, 5 of 7 days. We will continue his comorbid condi tion, addressing his urinary outflow tract obstruction with Flomax 0.8 mg at bedtime. Continue the B rilinta 90 mg twice daily for his stroke and DVT risk reduction. Also, he is on aspirin 81 mg daily, Lipitor 80 mg at bedtime, Norvasc 10 mg daily, amino acids, ProSource 30 mL twice daily, Norvasc 7.5 /325 every 4 hours as needed, regular Tylenol 500 mg every 4 hours as needed as well. The azithromyc in is 250 mg daily from 02/17 to 02/20 and Celexa for mood is 20 mg daily, Colace 100 mg twice daily for constipation. He has Proscar for urinary outflow tract obstruction. Gabapentin started 100 mg t wice daily for his neuropathic diabetic pain, Semglee insulin 10 units at bedtime and blood sugar yolanda l be carefully followed to make adjustments to the insulin, has Hemocyte Plus for the anemia, Zofran for nausea. Comorbidities That Are Impacting Rehabilitation: Given the patient is on multiple antibiotics, recen t osteomyelitis, sepsis, would be vigilantly looked for if need be procalcitonin, lactic acid, bone c ultures will be done and the ID service may be consulted. Of course, the new right below the knee am putation and the patient may be potentially impulsive and tries to be out of the chair or the bed try ing to step with the right foot, when there is no foot present and we reminded constantly about that so he minimizes the risk of falling. Rehab Specific Plan: Mr. Sadiq Estrada will have physical and occupational therapy 3 hours a day , 5 of 7 days. If need be, speech therapy hours, 5 of 7 days to improve his ability to tra nsfer from a bed to a wheelchair, to a rolling walker, to a toilet on and off, in and out of the show er, as well as dressing of upper and lower body, donning and doffing footwear on the left, performing his activities of daily living and maintaining good safety awareness. Mr. Babcock has a good understanding of the process of admission to the inpatient rehabilitation unit , how he will benefit from physical, occupational, and if need be speech therapy. He will have 24 ho urs a day, 7 days a week skilled rehabilitation nursing, daily physician evaluation and management, a pr nursing home social worker evaluation and management for discharge planning, home equipment, and to continue therapy after his discharge. If need be, the hospitalist service, the cardiology service will be con sulted. Barriers To Discharge: Mr. Babcock does have IV antibiotics currently. Those should be completed pr ior to him going home. If there is worsening infection, he requires more antibiotics, he may have to consider long-term acute care for managing chronic infection requiring multiple antibiotics. Length Of Stay: About 10 days. Disposition: Expected to be home to continue therapy via Home Health. Prognosis: Good prognosis despite his complicated condition. Code Status: Full code. Rehab Specific Goals: 1. To become independent with upper and lower body dressing and donning and doffing footwear on the l eft. 2. Independently put the brace, which is actually on the right lower extremity that is well dressed a nd bandaged with good hemostasis. Learn to remove and place that. 3. To be as independent as possible with all of his activities of daily living. 4. Independently mobilize wheelchair 250 feet. 5. Perhaps hop with a rolling walker at least 50 feet. Next try to go up and down 5-10 steps with bi lateral handrails and the left leg. 6. Again perform all cognitive functioning independently. The above goals were reviewed with Mr. Babcock and he has agreed. By signing this document, I acknowledge I personally performed a full physical examination on Mr. Jon watson no later than 24 hours after his admission to the inpatient rehabilitation unit and determined t hat he is able to tolerate the above course of treatment at an intensive level for a reasonable perio d of time. A detailed individualized plan of care for him will be completed by hospital day 4 based on the preadmission screen, history and physical, and therapy evaluations. HIMANSHU Voice ID: [id number]
[2025-02-18] MEDS: FE SULF/FA/VIT B COMP & C TAB PO SCH (07:48)
[2025-02-18] MEDS: FERROUS SULFATE 325 MG TAB PO SCH (07:48)
[2025-02-18] MEDS ORDERED: NA CHLORIDE 0.9% 250 ML ONE (19:02)
[2025-02-18] MEDS: GABAPENTIN 100 MG CAP PO SCH (20:11)
--- NOTE | 2025-02-19 02:23 | PN ---
Date of Progress Note: 02/18/2025 Time Of Service: 1:20 p.m. Subjective: Mr. Estrada is in between therapy sessions. He is moving and swinging his leg around, his left leg. There is a right below-knee amputation with good hemostasis. He has braces across th e knee and the remaining portion of his right leg. He does have appearance. In terms of when asked about pain, he did mention the pain could be up to 10/10, although his face does not seem to be matching that. There may be a communication barrier, but pain medication will be adjusted to h elp the patient significantly decrease his pain level to hopefully 3 or less. Gabapentin was adjuste d to 200 mg twice daily for that. Review of Systems: Again, some pain noted at the stump. Denies any kind of phantom limb pain. Otherwise, no new defici ts on his review of systems. Physical Examination: Vital Signs: Blood pressure 165/70, pulse 67, respiratory rate 18, temperature 97.2, oxygen saturati on 99%. General: Mr. Estrada is resting comfortably. Despite mention of pain at times, the therapist woul d note, he has shown some grimacing and so pain medications have been on board and are helpful for hi m to decrease his pain level. Currently, listed as 0 on the chart with him. Lungs: Otherwise good air movement. Abdomen: Soft. Extremities: The left lower extremity shows no clubbing, cyanosis, or edema. Laboratory Studies: White blood cell count 12.4, hemoglobin 7.6, platelets 587. His blood sugars ra nged from 159 to 222. Sodium 141, potassium 3.3, chloride 112, carbon dioxide 23, BUN 16, creatinine 0.61. Magnesium 2.2. Albumin 2.1, prealbumin 12.6. Urinalysis from the showed 1+ blood, 2+ g lucose. X-ray/imaging: No new x-rays or imaging. Current Medications: Tylenol 500 mg every 6 hours as needed, [place] 7.5/325 every 4 hours as needed, amino acids, ProSource 30 mL twice daily, Norvasc 10 mg daily, aspirin 81 mg daily, Lipitor 80 mg at bedtime. Continue azithromycin 250 mg daily from 15 to 19. He does have features as noted by the [facility] of some mild tremors intermittent in the right hand. No lety masklike face or significant b radykinesia, but some features of parkinsonism. As a result, he was started on Sinemet 25/100 one . Also, he is stated on Celexa 10 mg daily, Colace 100 mg twice daily, ferrous sulfate 325 mg sanna ly, Proscar 5 mg daily, gabapentin 200 mg twice daily. He has heparin 5000 units subcutaneously ever y 12 hours, Semglee insulin 10 units at bedtime, meropenem 1000 mg every 12 hours, Hemocyte Plus maria del carmen y, nicotine patch 14 mg patch daily, Flomax 0.8 mg daily, Zofran 4 mg every 8 hours as needed for vom iting, and Brilinta 90 mg twice daily. Progress Made With Physical, Occupational, And Speech Therapy: With physical therapy today, he compl eted bed mobility with bykzpnlp-rl-umeejru assistance, minimum assistance for [id number]-vh-[id number] transfer, and minimum assistance for turning in bed. He did ambulate in parallel bars, did 4 steps with left leg and mobilized wheelchair 125 feet 4 times with minimum to contact guard assistance. With occupat ional therapy, moderate assistance for edge of bed to wheelchair transfer via the techniqu e. Maximum assistance for wheelchair to toilet transfer using the rails. With speech, his weekly a ssessment, he did have a score of 9/15 on the BIMS and 7/30 on the SLUMS indicating severe cognitive impairment and Therapy is working with him to improve safety awareness, communication, comprehension, and decision making. Assessment And Plan: Mr. Babcock is a 75-year-old patient in rehabilitation unit with gangrene of th e right toe, status post right [id number]-bkke amputation. He has multiple comorbid conditions, which have been noted. These are including decreased mobility, decreased physical functioning, prostate h ypertrophy, tobacco dependency, completing osteomyelitis treatment. He has gabapentin for neuropathi c pain, has increased. He has ferrous sulfate for iron deficiency, Colace for constipation, Sinemet for parkinsonism, and Lipitor for dyslipidemia. Does have aspirin for stroke risk reduction, amino acids for protein malnutrition, [place] for pain and . Will continue with his therapy, which will be 3.5 hours, 5 of 7 days. BRODY/MARICARMEN Voice ID: [id number] Report ID: [id number]
[2025-02-19] MEDS: CARBIDOPA/LEVODOPA 25/100 TAB PO SCH (07:39)
[2025-02-19] MEDS: FERROUS SULFATE 325 MG TAB PO SCH (11:37)
[2025-02-19] MEDS: FE SULF/FA/VIT B COMP & C TAB PO SCH (11:37)
[2025-02-19] MEDS ORDERED: GLUCAGON 1 MG/VIAL IM PRN (15:21)
[2025-02-19] MEDS ORDERED: D10W 125 ML IV PRN (15:21)
--- NOTE | 2025-02-20 02:44 | PN ---
Date of Progress Note: 02/19/2025 Time Of Service: 1:15. Subjective: Mr. Estrada is in his bed. He was doing better today than yesterday . No n ew complaints. Objective: No fevers, chills, nausea, vomiting, myalgias, arthralgias. Physical Examination: Vital Signs: Blood pressure is 142/65, pulse 73, respiratory rate 18, temperature 98.0. Oxygen satu ration 99%. GENERAL: Mr. 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 Laboratory Studies: No new laboratory studies except blood sugars ranged from 162 to 186. X-ray/imaging: No new x-rays or imaging. Medications: Have been reviewed and are unchanged. Progress Made With Physical, Occupational, And Speech Therapy: With physical therapy, bed mobility w ith pkfafz-si-tck transfers with minimum to contact guard assistance, multiple wbg-em-pmtam transfers with parallel bars with contact guard assistance. Mobilized wheelchair 150 feet and 125 feet with c ontact guard assistance. Then in the afternoon, mobilized the wheelchair 100 feet twice with contact guard to minimum assistance. With occupational therapy, maximum assistance for mwu-tu-boufb transfe rs and was able to do pressure exercises 4 x 6 steps with some rest breaks in between with speech, re call 2 of 2 unrelated items independently after 10 minutes delay and required moderate assistance for working memory tasks for 2 units of information with 50% accuracy. Temporal orientation skills used at 70% accuracy with moderate assistance. Assessment And Plan: Mr. 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 He does have decreased mobility, decreased physical functioning, prompting seems symptoms, which is . He has Lipi tor for dyslipidemia, Norvasc for hypertension, ProSource amino acids for protein malnutrition, [place] for pain and Colace for constipation, ferrous sulfate for iron deficiency. He has gabapentin for th e neuropathic pain related to the amputation. He has meropenem on board, nicotine patch, Zofran, Jacques max, and Brilinta for ease of blood flow to reduce the risk of clots. In terms of again therapy, we will continue with physical, occupational, and speech therapy 3.5 hours, 5 to 7 days and his comorbid condition, medications which have been outlined will continue as well. BRODY/MARICARMEN Voice ID: [id number] Report ID: [id number]
[2025-02-20 06:43] LABS: Absolute Lymphocytes (CBC) 2.0 K/uL (0.7-4.9); Hematocrit 20.5 % (39.6-49.0); Hemoglobin 7.3 g/dL (13.6-17.9); MCH 30.0 pg (27.0-35.0); MCHC 35.4 g/dL (32.0-36.0); MCV 84.9 fL (80-100); MPV 7.5 fL (7.6-11.3); Nucleated RBC Absolute Count 0.0 (0-0); Nucleated Red Blood Cells % 0.0 % (0-0); RBC Red Blood Cell Count 2.42 M/uL (4.33-5.43); White Blood Count 9.70 thou/uL (4.3-10.9)
[2025-02-20 07:00] LABS: Albumin 2.2 g/dL (3.4-5.0); Anion Gap 7.6 mEq/L (5.0-15.0); BUN Blood Urea Nitrogen 20.0 mg/dL (7-18); Glucose Level 155.0 mg/dL (74-106); Magnesium 2.0 mg/dL (1.6-2.4); Potassium 3.6 mEq/L (3.5-5.1); Prealbumin 12.6 mg/dL (20-40)
[2025-02-20] MEDS: GABAPENTIN 300 MG CAP PO SCH (19:53)
[2025-02-20] MEDS ORDERED: NA CHLORIDE 0.9% 250 ML ONE (21:30)
[2025-02-20] MEDS ORDERED: NA CHLORIDE 0.9% 250 ML IV SCH (22:00)
[2025-02-21] MEDS ORDERED: BISACODYL 10 MG RECTAL SUPP PR PRN (00:25)
[2025-02-21] MEDS ORDERED: MAGNESIUM HYDROXIDE 8% 30 ML PO PRN (00:25)
--- NOTE | 2025-02-21 01:39 | PN ---
Date of Progress Note: 02/20/2025 Time: 1:20 p.m. Subjective: Mr. Sadiq Estrada is resting comfortably. His bandage is off on the stump on the formerly [facility]. There are chapin in place. There is good hemostasis for the right below the knee amputation s ite. He does report 10/10 pain. He did have an adjustment to his gabapentin to 300 mg twice daily f rom 200 mg twice daily. Also, multimodality pain medications on board. Review of Systems: No fevers, chills, nausea, vomiting. Again, pain noted, no phantom limb pain, but pain of the stump as the patient is mobilizing. Physical Examination: Vital Signs: Blood pressure 159/71, pulse 92, respiratory rate 18, temperature 97.6, oxygen saturati on 98%. General: Mr. Babcock is resting in bed. He is in no acute distress. HEENT: He appears normocephalic, atraumatic. Sclerae anicteric. Oropharynx moist. Extremities: Left lower extremity, no significant edema, cyanosis, clubbing and again good hemostasi s with a right below the knee amputation of surgical sites. [place] in place across the top of the i ncision. Laboratory Studies: Today, he did have a drop of hemoglobin down to 7.3. Two days ago, it was aroun d 8. The patient will get 1 unit of packed red blood cells. White blood cell count improved from 12 .4 to 9.7, platelets are 618, likely reactive. Sodium 138, potassium 3.6, chloride 108, carbon dioxi de 26, BUN 20, creatinine 0.58, glucose ranged from 141 to 183, calcium 8.6. Magnesium 2.0. Albumin 2.2 and prealbumin 12.6. X-ray/imaging: No new x-rays or imaging. Note, patient is receiving 1 unit of packed red blood cell s. Progress Made With Physical, Occupational, And Speech Therapy: Today, he was able to complete bed mo bility, turning in bed, supine to sit with minimum to contact guard assistance. Kxl-lj-txtah transfe rs, contact guard assistance. He ambulated 6 steps with parallel bars, propel a wheelchai r 100 feet x2 with contact guard assistance and 125 feet. Maximum assistance for sit to stand twice with a rolling walker and from the wheelchair. Tolerated 30 seconds standing with rolling walker twi ce and maximum assistance to scoot forward from the wheelchair to the edge of bed and to get to supin e position. The patient has a slight tremor in bilateral lower extremities. It is noted that while the patient has been in the unit, he did have some tremors in the upper extremities and some difficul ty initiating movement. He was actually started on carbidopa/levodopa 25/100 in the morning, which m keena some improvement to his tremors and he has difficulty initiating movement. The dosage of medicat ion will be adjusted to 25/100, carbidopa/levodopa twice daily in the morning and around lunch time. The patient of course will be evaluated further for improvement movement and decreasing t remors. With his speech therapy, he did do 80% accuracy doing temporal orientation skills with minim al assistance, recalled 2 of 2 unrelated items after 10 minutes independently. He required maximal a ssistance for working memory for 2 units of information and 30% accuracy. Medications: He is continued on Lipitor, aspirin, Norvasc, amino acids supplementation, Weinert for pa in. He has Celexa for depression, Colace for stool softening, Proscar for prostate hypertrophy, and urinary outflow obstruction. He has gabapentin for neuropathic pain, Semglee insulin for diabetes me llitus, meropenem is continued, antibiotic for his osteomyelitis and Brilinta. He did have a stent i n the right lower extremity prior to the procedure and discontinued. Assessment And Plan: Mr. Babcock is a -nbvd-qjl patient admitted to inpatient rehabilitati on unit with right lower extremity gangrene, status post amputation. He does have decreased mobility , decreased physical functioning. He does have what appears to be parkinsonism, seems to be responsi ve to carbidopa/levodopa. That medication again was increased. He still has other comorbid conditio ns including urinary outflow tract obstruction issues, diabetes mellitus, neuropathic pain, iron defi ciency anemia, dyslipidemia, and hypertension. Continue with physical, occupational, and speech ther apy 3.5 hours, 5 of 7 days. Continue with comorbid conditions as noted and the comorbid condition im pacting his rehabilitation now is likely parkinsonism, which puts him at high risk of falling as he h as some episodes of difficulty initiating movement and tremors. Has other comorbid conditions as well and will be addressed on a daily basis. LB/MODL Voice ID: [id number] Report ID: [id number]
[2025-02-21 05:21] LABS: Absolute Lymphocytes (CBC) 1.7 K/uL (0.7-4.9); Hematocrit 25.1 % (39.6-49.0); Hemoglobin 8.7 g/dL (13.6-17.9); MCH 29.5 pg (27.0-35.0); MCHC 34.5 g/dL (32.0-36.0); MCV 85.6 fL (80-100); MPV 7.6 fL (7.6-11.3); Nucleated RBC Absolute Count 0.0 (0-0); Nucleated Red Blood Cells % 0.0 % (0-0); RBC Red Blood Cell Count 2.94 M/uL (4.33-5.43); White Blood Count 9.90 thou/uL (4.3-10.9)
[2025-02-21] MEDS: DOCUSATE NA/SENNA CONC 1 TAB PO SCH (07:48)
[2025-02-21] MEDS: POLYETHYL GLY 3350 17 GM/DOSE PO SCH (07:49)
[2025-02-21] MEDS: CARBIDOPA/LEVODOPA 25/100 TAB PO SCH (11:56)
--- NOTE | 2025-02-21 13:36 | P.RH.PN ---
Estimated Length of Stay: 16 Expected Discharge Date: 03/01/25 Discharge Disposition Plan: Home Family Support: Yes Retirement Goal: Mobility, Transfers, Self Care Vital Signs: Last Vital Signs Temp 98.1 F 02/21/25 07:25 Pulse 75 02/21/25 07:25 Resp 18 02/21/25 07:25 BP 175/78 H 02/21/25 07:25 Pulse Ox 97 02/21/25 07:25 Laboratory: Laboratory Last Values WBC 9.90 thou/uL (4.3-10.9) 02/21/25 05:02 RBC 2.94 M/uL (4.33-5.43) L 02/21/25 05:02 Hgb 8.7 g/dL (13.6-17.9) L D 02/21/25 05:02 Hct 25.1 % (39.6-49.0) L 02/21/25 05:02 MCV 85.6 fL (80-100) 02/21/25 05:02 MCH 29.5 pg (27.0-35.0) 02/21/25 05:02 MCHC 34.5 g/dL (32.0-36.0) 02/21/25 05:02 RDW 14.4 % (12.1-15.2) 02/21/25 05:02 Plt Count 617 thou/uL (152-406) H 02/21/25 05:02 MPV 7.6 fL (7.6-11.3) 02/21/25 05:02 Neutrophils % 72.3 % (41.7-73.7) 02/21/25 05:02 Lymphocytes % 17.0 % (15.3-44.8) 02/21/25 05:02 Monocytes % 7.8 % (3.3-12.3) 02/21/25 05:02 Eosinophils % 2.2 % (0-4.4) 02/21/25 05:02 Basophils % 0.7 % (0-1.3) 02/21/25 05:02 Absolute Neutrophils 7.1 K/uL (1.8-8.0) 02/21/25 05:02 Absolute Lymphocytes 1.7 K/uL (0.7-4.9) 02/21/25 05:02 Absolute Monocytes 0.8 K/uL (0.1-1.3) 02/21/25 05:02 Absolute Eosinophils 0.2 K/uL (0-0.5) 02/21/25 05:02 Absolute Basophils 0.1 K/uL (0-0.5) 02/21/25 05:02 Sodium 138 mEq/L (136-145) 02/20/25 06:22 Potassium 3.6 mEq/L (3.5-5.1) 02/20/25 06:22 Chloride 108 mEq/L (98-107) H 02/20/25 06:22 Carbon Dioxide 26 mEq/L (21-32) 02/20/25 06:22 Anion Gap 7.6 mEq/L (5.0-15.0) 02/20/25 06:22 BUN 20 mg/dL (7-18) H 02/20/25 06:22 Creatinine 0.58 mg/dL (0.70-1.30) L 02/20/25 06:22 Est GFR (CKD-EPI) 101 ml/min (=/>90) 02/20/25 06:22 Glucose 155 mg/dL (74-106) H 02/20/25 06:22 POC Glucose 158 mg/dL (65-120) H 02/21/25 11:58 Calcium 8.6 mg/dL (8.5-10.1) 02/20/25 06:22 Magnesium 2.0 mg/dL (1.6-2.4) 02/20/25 06:22 Albumin 2.2 g/dL (3.4-5.0) L 02/20/25 06:22 Prealbumin 12.6 mg/dL (20-40) L 02/20/25 06:22 Urine Color Light-yellow (Yellow) 02/17/25 04:45 Urine Clarity Clear (Clear) 02/17/25 04:45 Urine pH 6.0 (5.0-7.0) 02/17/25 04:45 Ur Specific [place] 1.014 (1.005-1.030) 02/17/25 04:45 Glucose (UA)(Auto) Negative (Negative) 02/17/25 04:45 Urine Ketones Negative (Negative) 02/17/25 04:45 Urine Blood 1+ (Negative) H 02/17/25 04:45 Urine Nitrite Negative (Negative) 02/17/25 04:45 Urine Bilirubin Negative (Negative) 02/17/25 04:45 Urine Urobilinogen Normal (Normal) 02/17/25 04:45 Ur Leukocyte Esterase Negative [place]/uL (Negative) 02/17/25 04:45 Urine RBC <5 /HPF (None Seen) 02/17/25 04:45 Urine WBC 5-10 /HPF (<5) 02/17/25 04:45 Ur Squamous Epith Cells None seen /HPF (None Seen) 02/17/25 04:45 Urine Bacteria <20 /HPF (<20) 02/17/25 04:45 Urine Mucus Slight /HPF (None Seen) 02/17/25 04:45 Urine Culture Reflexed Not needed 02/17/25 04:45 Urine Total Protein 2+ (Negative) H 02/17/25 04:45 ABO/Rh Cancelled 02/20/25 Unknown Solid Phase Ab Screen Cancelled 02/20/25 Unknown Crossmatch See Detail 02/20/25 Unknown Weight: 171 lb Wound Present: No Closed Surgical Incision Present: Yes Negative Pressure Wound Therapy Present: No Physician Update: Labs reviewed and are stable. He revieved a unit of RBC with improvement in his Hg to 8.7 from 7.3. Completed IV antibiotics. Poor safety awareness, moderate pain and fatigue. On hand mica plate layer for prosthesis. BIMS 9 SLUMS 9. Recalling three pictures. He responds well to his ex- in [place]. Mod assist bed mobility, max assist for squat pivot transfers. Did forward/backwards transfers with assistance. Up to 7 steps in the parallel bar sit mod to max assist. No met LTG with OT. Mod assist with transfers and ADLs. Would require antitippers on wheelchair. Poor control of urine. His freedom of movement is mildy better with increased Sinemet 25/100 mg twice daily. Summary: Patient's care plan and terminal system operator goals have been reviewed and revised as necessary. Please see the Rehabilitation Signature page for all necessary signatures.
[2025-02-21] MEDS: ATORVASTATIN 80 MG TAB PO SCH (19:53)
[2025-02-24] MEDS: INSULIN GLARGINE 100 UNIT/ML SQ SCH (20:29)
--- NOTE | 2025-02-24 22:15 | PN ---
Date of Progress Note: 02/24/2025 Time: 1:20 p.m. Subjective: Mr. Estrada is lying across the bed. He is in no significant distress. His right sylvia t below-knee amputation stump looks good. Dressing has been changed. There is good hemostasis. No drainage present. Ralph still in place. Objective: No fevers, chills, nausea, vomiting. No myalgias, arthralgias. He says his pain level i s 0 at this moment. Physical Examination: Vital Signs: Blood pressure 167/75, pulse 72, respiratory rate 18, temperature 98.2, oxygen saturati on 97%. Weight 171 pounds, height 5 feet 4 inches, BMI 29.4. General: Mr. Sadiq Estrada is lying in bed in between therapy sessions. He is in no significant distress. Extremities: He was not able to move arms well with stump on the right. No issues with his right lo wer extremity stump. On the left side, he does vary with movement. There is no heel breakdown notic ed. Laboratory Studies: Blood sugars ranged from 210 to 250. His insulin will be adjusted. His glargin e insulin will go up from 10 units subcutaneously at bedtime to 12 units. Otherwise, he will continu e with magnesium, iron, nicotine patch. He has Zofran, Flomax, and Brilinta on board. There are ecasar e issues of incontinence of urine. Progress Made With Physical, Occupational, And Speech Therapy: With physical therapy today, bed mobi lity, turning in bed with minimum assistance, qeuuax-jg-ogh transfers with minimum assistance, multip le cjk-sg-zllpx transfers x5 with bilateral handrails with moderate assistance to maximum assistance. He did mobilize a wheelchair 200 feet with contact guard assistance. With occupational therapy, mo derate assistance to don left shoe during 3 trials with 3 different methods, did propel a wheelchair 75% of the trip to and from the gym with the wheelchair, require significant increased time to propel the wheelchair. He did do exercises and did fairly well. With his speech, able to recall 3 of 3 un related items after 10-minute delay with independence. He needed moderate assistance and 70% accurac y for working memory tasks for 2 units of information. He could state 5 to 7 items within a category in 1 minute. His temporal orientation skills were at 90% accuracy with minimum assistance. Assessment And Plan: Mr. Babcock is a 75-year-old patient in rehabilitation unit with gangrene of th e right foot. He is status post amputation of right lrgol-lfz-snun. He is on antibiotics longer ter m. He does have decreased mobility, decreased physical functioning, hypertension, malnutrition, dysl ipidemia. He has Parkinson's disease and actually he had some pill rolling tremor and mor e in the right upper extremity. He does have depression, anxiety, diabetes mellitus, neuropathic esequiel n, diabetes, tobacco dependency, iron deficiency, and urinary retention. continue with ph ysical, occupational, and speech. In terms of his speech therapy, he did recall 3 of 3 unrelated ite ms after 10-minute delay independently. He did have moderate assistance and had 70% accuracy for wor michael memory for 2 units and he could state 5 to 7 items in a category in 1 minute. Temporal orientat ion was 90% accurate and will continue physical, occupational, and speech therapy. At thi s point, he is doing quite well given his limitations of the right dhszq-gpb-taoe amputation. LB/MODL Voice ID: [id number] Report ID: [id number]
--- NOTE | 2025-02-25 19:46 | PN ---
Date of Progress Note: 02/25/2025 Time: 1:20 p.m. Subjective: Mr. Sadiq Estrada earlier today is trying to bend forward to put the shoe on his lef t foot. He has a right mpeqv-kll-iyel amputation. At that point, he did sit forward, fell onto the right stump, and has an area about an inch and half towards the left side of the incision with staple s that has opened up slightly with some mild areas present there. Dr. Sahu, the surge on, was called CT and he evaluated the wound to determine if anything other than the dressings, perha ps . Objective: Despite the fall, Mr. Sadiq Estrada significant pain in the area and there is no phantom limb pain. He has no new complaints. Physical Examination: Vital Signs: Blood pressure is 151/72, pulse of 75, respiratory rate 18, temperature 97.4, oxygen sa turation 97%. General: Mr. Sadiq Estrada is getting ready to do therapy. Extremities: The leg is well bandaged and there is good hemostasis chapin with post belo w-the-knee amputation surgery site is located. Otherwise, he has no clubbing, cyanosis, or edema of the left foot. There are no focal deficits. Good air movement bilaterally. Laboratory Studies: Repeat blood work, labs last done on 02/21 shows white blood cell count 9.9, hem oglobin 8.7. Today, blood sugars ranged from 163 to 278. X-ray/imaging: No new x-rays or imaging. Medications: His medications have been reviewed and are unchanged. Progress Made With Physical, Occupational, And Speech Therapy: With his occupational therapy, again some difficulty with transferring supine to sit and requiring verbal cues and contact guard assistanc e to do such transfers. He was able to sit at edge of bed for 10 minutes, did have some leaning to t he right. While sitting in bed, the nursing staff did note the possibility that he may have had some what appears to on his finger nails and that was addressed. With physical therapy, compl eted bed mobility including turning in bed minimum assistance, jkdpoq-su-dvi transfers done with mini mum assistance, completed jfb-an-cpcvz transfers with bilateral handrails with moderate to maximum as sistance. He eventually did mobilize a wheelchair 200 feet with contact guard assistance with minimu m assistance. Today with his speech, able to recall 3 of 3 unrelated items after 10-minute delay ind ependently. He needed moderate assistance and 70% accuracy for working memory tasks up to of information. He was able to state between 5 and 7 items within a category in 1 minute. There wa s 10-point orientation with 90% accuracy with minimum assistance. Assessment And Plan: Mr. Sadiq Estrada is a 75-year-old patient in rehabilitation unit with gang giovanni of the right foot. He is status post right enbsn-gva-wfyr amputation. He does have significant impulsivity and has some significant problems with loss of balance daily resulting in a fall where h e had what appears to have that from the right knee surgical site. There was st ill good hemostasis in that area. However, given the patient's very unstable balance and postural in stability and his high risk of continued falls, it is unsafe for him to go home or to be in a facilit y where he was on his own. It is highly recommended that he continue from his rehabilitation to [facility] where the stump did have more time to heal and he will begin using the dischar ged home, it is highly likely . He does have comorbidities of decreased mobility, decrease d physical functioning, constipation, urinary tract outflow obstruction with prostate hypertrophy, to bacco dependency, diabetes mellitus, Parkinson's disease with tremors noted more in the right than le ft upper extremity, has hypertension, dyslipidemia, protein malnutrition. His plan was to continue w [facility] physical, occupational, and speech therapy. His medications have been noted. He will continue Jim Sahu come back and see the wound and if there is any additional treatment intervent ion required, Dr. Sahu wanted to be followed. His comorbidities include Parkinson's addressed by twice a day dosage of Sinemet and other medications are as noted on board and we will continue with physical, occupational, and speech therapy 3.5 hours, 5 of 7 days. Again, highly recommend the patient go to a residential himself. BRODY/MARICARMEN Voice ID: [id number] Report ID: [id number]
--- NOTE | 2025-02-25 21:18 | RAD REPORT ---
EXAM: Chest Single View HISTORY: 75 years Male r/o pneumonia COMPARISON: 02/13/2025 FINDINGS: LUNGS/PLEURA: Mild improved aeration of the right lower lobe. There are still residual airspace opaci ties. CARDIAC/MEDIASTINUM: Mild cardiomegaly UPPER ABDOMEN: No significant abnormality. BONES: No acute abnormality. LINES/TUBES/OTHER: N/A IMPRESSION: Improved though not completely resolved airspace disease in the right lower lobe.
[2025-02-26 05:06] LABS: Absolute Lymphocytes (CBC) 2.5 K/uL (0.7-4.9); Hematocrit 26.7 % (39.6-49.0); Hemoglobin 9.0 g/dL (13.6-17.9); MCH 29.2 pg (27.0-35.0); MCHC 33.8 g/dL (32.0-36.0); MCV 86.4 fL (80-100); MPV 7.8 fL (7.6-11.3); Nucleated RBC Absolute Count 0.0 (0-0); Nucleated Red Blood Cells % 0.0 % (0-0); RBC Red Blood Cell Count 3.09 M/uL (4.33-5.43); White Blood Count 11.70 thou/uL (4.3-10.9)
[2025-02-26 05:19] LABS: Anion Gap 10.5 mEq/L (5.0-15.0); BUN Blood Urea Nitrogen 30.0 mg/dL (7-18); Glucose Level 119.0 mg/dL (74-106); Potassium 4.5 mEq/L (3.5-5.1)
--- NOTE | 2025-02-27 03:02 | PN ---
Date of Progress Note: 02/26/2025 Time: 1:20. Subjective: Mr. Sadiq Estrada is lying in bed. No significant distress. Does not have any sign ificant pain as his right foot stump would show after gangrene. He has no new complaints. Review of Systems: No fevers, chills, nausea, vomiting, myalgias, arthralgias without any other issues. Physical Examination: Vital Signs: Blood pressure is 150/65, pulse 80, respiratory rate 16, temperature 98, oxygen saturat ion 96%. General: Mr. Sadiq Estrada is resting comfortably in bed, doing well. Neuro: No complaints of focal deficits and his stump has good hemostasis. Dr. Sahu has not yet seen him after he did have a slight fall and landed on the end of his right lower extremity stump, but it is doing well, healing, in wet-to-dry dressing and as well. Medications: Reviewed and are unchanged. Laboratory Data And Imaging: No new labs and imaging. Progress Made With Physical, Occupational, And Speech Therapy: With physical therapy today, he did a mbulate with a rolling walker 3-5 feet 3 times with moderate assistance and mobilized a wheelchair 25 0 feet with standby assistance and verbal cues. Yjjlmd-og-ofb transfers done with minimum assistance , blr-pj-lmubo transfers with moderate assistance. With occupational therapy, debbie and doff shorts in the toilet, was leaning somewhat to right side. The patient's ex- was with him and felt that hemant duque actually will be helping him when he goes home and did don and doff his undergarment. He was at a standby assistance level for transferring edge of bed to wheelchair via scooting technique. With [facility] john, he was demonstrating temporal orientation skills with 100% accuracy and no verbal cues needed. He recalled 4/4 unrelated pictures after 1 minute and 3 of 4 after 3 minutes. On a second attempt, jaylen duque recalled 4 of 4 after another 3-minute delay. Assessment And Plan: Mr. Estrada is a 75-year-old patient in rehabilitation unit with gangrene of right lower extremity, status post right below-knee amputation. He is making fair progress with nikos , slow progress with physical and occupational therapy. He does have comorbidities, decreased mobi lity, decreased physical functioning, dyslipidemia, hypertension, Parkinson disease, and tobacco depe ndency, pain, urinary retention. He had stent in the lower extremity arteries. His plan will be to continue with physical, occupational, and speech therapy for 3.5 hours, 5 of 7 da ys. He will continue his list of comorbid condition medications as noted. The patient did demonstra te some impulsivity and would likely require supervision to go back home as he is at high risk of fal ling and re-injuring the right lower extremity stump and therefore [facility] may be considered as he is alone if he is to go back home and again will be a high risk of worsening injuries. BRODY/MARICARMEN Voice ID: [id number] Report ID: [id number]
[2025-02-27 04:45] LABS: Absolute Lymphocytes (CBC) 2.1 K/uL (0.7-4.9); Hematocrit 24.5 % (39.6-49.0); Hemoglobin 8.5 g/dL (13.6-17.9); MCH 30.2 pg (27.0-35.0); MCHC 34.9 g/dL (32.0-36.0); MCV 86.5 fL (80-100); MPV 8.0 fL (7.6-11.3); Nucleated RBC Absolute Count 0.0 (0-0); Nucleated Red Blood Cells % 0.0 % (0-0); RBC Red Blood Cell Count 2.83 M/uL (4.33-5.43); White Blood Count 10.50 thou/uL (4.3-10.9)
[2025-02-27 05:19] LABS: Albumin 2.3 g/dL (3.4-5.0); Anion Gap 9.2 mEq/L (5.0-15.0); BUN Blood Urea Nitrogen 32.0 mg/dL (7-18); Glucose Level 188.0 mg/dL (74-106); Magnesium 2.1 mg/dL (1.6-2.4); Potassium 4.2 mEq/L (3.5-5.1); Prealbumin 18.7 mg/dL (20-40)
--- NOTE | 2025-02-27 12:46 | RAD REPORT ---
EXAMINATION: ONE VIEW CHEST XR CLINICAL INDICATION: Male, 75 years old.,increased cough and congestion TECHNIQUE: Frontal chest projection is submitted. Examination is limited by patient positioning and t echnique. COMPARISON: 02/25/2025 FINDINGS: The lungs are well inflated and clear with stable platelike right basilar atelectasis. No pneumothor ax or sizable effusion. The heart is normal in size. Mediastinal contours are unremarkable. IMPRESSION: No acute intrathoracic abnormalities.
[2025-02-27] MEDS ORDERED: BENZONATATE 100 MG CAP PO PRN (13:22)
[2025-02-27] MEDS ORDERED: guaiFENesin 100 MG/5 ML UCUP PO PRN (13:47)
[2025-02-27] MEDS ORDERED: INSULIN GLARGINE 100 UNIT/ML SQ ONE (17:48)
[2025-02-27] MEDS: NYSTATIN 100MU/GM CREAM 15GM TOP SCH (20:38)
[2025-02-27] MEDS: INSULIN GLARGINE 100 UNIT/ML SQ SCH (20:39)
--- NOTE | 2025-02-28 04:37 | PN ---
Date of Progress Note: 02/27/2025 Time: 01:20 p.m. Subjective: Mr. Estrada is resting in bed. He was seen by Dr. Sahu in the Wound Care Service and the wound, which is in his right asmfm-elw-[id number] amputation, which opened up as he fell down, was inspected and Dr. Sahu suggested that additional surgery may be required as the tissue appears to not be healing very well and that eventually will be managed by Dr. Sahu. Objective: The patient does report some more pain in the right knee and pain medications were adjust ed to accommodate for that. Otherwise, no new finding in his objective. Physical Examination: Vital Signs: Blood pressure is 172/72, pulse 88, respiratory rate 18, temperature 97.9, oxygen satur ation 97%, weight 171 pounds, height 5 feet, BMI is 29.4. General: Mr. Sadiq Estrada is resting in bed. Extremities: Mild pain in the right knee area. He is otherwise doing well in terms of his therapy, moving arms and left leg very well without any restrictions. Laboratory Studies: White blood cell count 10.5, hemoglobin 8.5, platelets 606. Sodium 140, potassi um 4.2, chloride 109, carbon dioxide 26, BUN 32, creatinine 1.04, glucose ranged from , mckinley cium 8.2, magnesium 2.1, albumin 2.3, prealbumin 18.7. X-ray/imaging: A chest x-ray was done today because the patient did have dry cough. The chest x-ray actually showed no acute intrathoracic abnormalities. Progress Made With Physical, Occupational, And Speech Therapy: With physical therapy, he completed b ed mobility, turning supine and scooting in bed with standby assistance, mobilized wheelchair 250 fee t with supervision to modified independence. Ambulated 10 feet, 4 feet, and 5 feet with minimal assi stance using a rolling walker. With his occupational therapy, he did engage in bilateral upper extre mity exercises with Thera-Band and also lower extremity exercise on the left side and speech. He was able to recall 4/4 unrelated items after 10 minutes delay independently. Did state only 5 items wit hin a category in 1 minute. Working memory for 2 units of information was at 90% accuracy with minim um assistance. Temporal orientation skills were at 90% accuracy with independence. Assessment And Plan: In summary, Mr. Estrada is a 75-year-old patient in rehabilitation unit with gangrene of the right toe, status post right bwomw-utp-cvum amputation, had that area opened back up after he fell and he is followed by Dr. Sahu in the Wound Care Service. He has comorbid diabetes mellitus, hypertension. He has diabetic neuropathy and dyslipidemia in addition to decreased mobili ty, decreased physical functioning, and prostate hypertrophy. His plan will be to continue with phys ical, occupational, and speech therapy for 3.5 hours for 7 days. Continue his comorbid condition med ications, which has been noted. Wound Care Service, Dr. Sahu, is following the patient very clos nohemy and if additional surgery required, that will be determined by Dr. Sahu. BRODY/MARICARMEN Voice ID: [id number] Report ID: [id number]
--- NOTE | 2025-02-28 13:40 | P.RH.PN ---
Estimated Length of Stay: 16 Expected Discharge Date: 03/12/25 Discharge Disposition Plan: Home Family Support: Yes Snf Goal: Mobility, Transfers, Self Care Vital Signs: Last Vital Signs Temp 98.1 F 02/28/25 07:10 Pulse 71 02/28/25 10:21 Resp 16 02/28/25 07:10 BP 160/72 H 02/28/25 10:21 Pulse Ox 96 02/28/25 07:10 Laboratory: Laboratory Last Values WBC 10.50 thou/uL (4.3-10.9) 02/27/25 04:25 RBC 2.83 M/uL (4.33-5.43) L 02/27/25 04:25 Hgb 8.5 g/dL (13.6-17.9) L 02/27/25 04:25 Hct 24.5 % (39.6-49.0) L 02/27/25 04:25 MCV 86.5 fL (80-100) 02/27/25 04:25 MCH 30.2 pg (27.0-35.0) 02/27/25 04:25 MCHC 34.9 g/dL (32.0-36.0) 02/27/25 04:25 RDW 14.7 % (12.1-15.2) 02/27/25 04:25 Plt Count 606 thou/uL (152-406) H 02/27/25 04:25 MPV 8.0 fL (7.6-11.3) 02/27/25 04:25 Neutrophils % 68.1 % (41.7-73.7) 02/27/25 04:25 Lymphocytes % 20.0 % (15.3-44.8) 02/27/25 04:25 Monocytes % 7.2 % (3.3-12.3) 02/27/25 04:25 Eosinophils % 4.1 % (0-4.4) 02/27/25 04:25 Basophils % 0.6 % (0-1.3) 02/27/25 04:25 Absolute Neutrophils 7.1 K/uL (1.8-8.0) 02/27/25 04:25 Absolute Lymphocytes 2.1 K/uL (0.7-4.9) 02/27/25 04:25 Absolute Monocytes 0.8 K/uL (0.1-1.3) 02/27/25 04:25 Absolute Eosinophils 0.4 K/uL (0-0.5) 02/27/25 04:25 Absolute Basophils 0.1 K/uL (0-0.5) 02/27/25 04:25 Sodium 140 mEq/L (136-145) 02/27/25 04:25 Potassium 4.2 mEq/L (3.5-5.1) 02/27/25 04:25 Chloride 109 mEq/L (98-107) H 02/27/25 04:25 Carbon Dioxide 26 mEq/L (21-32) 02/27/25 04:25 Anion Gap 9.2 mEq/L (5.0-15.0) 02/27/25 04:25 BUN 32 mg/dL (7-18) H 02/27/25 04:25 Creatinine 1.04 mg/dL (0.70-1.30) 02/27/25 04:25 Est GFR (CKD-EPI) 74 ml/min (=/>90) L 02/27/25 04:25 Glucose 188 mg/dL (74-106) H 02/27/25 04:25 POC Glucose 242 mg/dL (65-120) H 02/28/25 11:59 Calcium 8.2 mg/dL (8.5-10.1) L 02/27/25 04:25 Magnesium 2.1 mg/dL (1.6-2.4) 02/27/25 04:25 Albumin 2.3 g/dL (3.4-5.0) L 02/27/25 04:25 Prealbumin 18.7 mg/dL (20-40) L 02/27/25 04:25 Urine Color Light-yellow (Yellow) 02/17/25 04:45 Urine Clarity Clear (Clear) 02/17/25 04:45 Urine pH 6.0 (5.0-7.0) 02/17/25 04:45 Ur Specific [place] 1.014 (1.005-1.030) 02/17/25 04:45 Glucose (UA)(Auto) Negative (Negative) 02/17/25 04:45 Urine Ketones Negative (Negative) 02/17/25 04:45 Urine Blood 1+ (Negative) H 02/17/25 04:45 Urine Nitrite Negative (Negative) 02/17/25 04:45 Urine Bilirubin Negative (Negative) 02/17/25 04:45 Urine Urobilinogen Normal (Normal) 02/17/25 04:45 Ur Leukocyte Esterase Negative [place]/uL (Negative) 02/17/25 04:45 Urine RBC <5 /HPF (None Seen) 02/17/25 04:45 Urine WBC 5-10 /HPF (<5) 02/17/25 04:45 Ur Squamous Epith Cells None seen /HPF (None Seen) 02/17/25 04:45 Urine Bacteria <20 /HPF (<20) 02/17/25 04:45 Urine Mucus Slight /HPF (None Seen) 02/17/25 04:45 Urine Culture Reflexed Not needed 02/17/25 04:45 Urine Total Protein 2+ (Negative) H 02/17/25 04:45 ABO/Rh Cancelled 02/20/25 Unknown Solid Phase Ab Screen Cancelled 02/20/25 Unknown Crossmatch See Detail 02/20/25 Unknown Weight: 171 lb Wound Present: Yes Closed Surgical Incision Present: Yes Negative Pressure Wound Therapy Present: No Physician Update: Labs reviewed and are stable. Dr. Sahu addressed the right stump. Plan to D/C in AM with [facility] and follow-up with wound care. Did well with speech. Recalling 4 pictures and has improved organization skills. Doing well with PT, SBA to [place] to transfers. RW 10' with min assist. Cannot go up and down stairs. WC 250' with supervision. With OT 5/6 LTGa nd all STG. His present for family training. He requires drop arm commode and grab bars. SBA toilet transfers, partial for LBD, partial assist toilet hygiene. Summary: Patient's care plan and long-term goals have been reviewed and revised as necessary. Please see the Rehabilitation Signature page for all necessary signatures.
[2025-03-01 06:41] VITALS: BP 151/70; TEMP 98.3
== END 2025-03-01 11:30 | disposition home health service (06) | DRG 560 ==
LOC: 5TH 18:00
PROVIDERS: ADMIT Psychiatry & Neurology Neurology with Special Qualifications in Child Neurology; ATTEND Psychiatry & Neurology Neurology with Special Qualifications in Child Neurology
DX: Z47.81 Encounter for orthopedic aftercare following surgical amputation (principal); E46 Unspecified protein-calorie malnutrition; N13.8 Other obstructive and reflux uropathy; Z89.511 Acquired absence of right leg below knee; E11.51 Type 2 diabetes mellitus with diabetic peripheral angiopathy without gangrene; R26.89 Other abnormalities of gait and mobility; M25.561 Pain in right knee; R05.9 Cough, unspecified; R53.83 Other fatigue; G20.A1 Parkinson's disease without dyskinesia, without mention of fluctuations; I10 Essential (primary) hypertension; E78.5 Hyperlipidemia, unspecified; K59.00 Constipation, unspecified; D64.9 Anemia, unspecified; R11.0 Nausea; N40.1 Benign prostatic hyperplasia with lower urinary tract symptoms; R33.8 Other retention of urine; E61.1 Iron deficiency; Z91.81 History of falling; F17.200 Nicotine dependence, unspecified, uncomplicated; Z79.4 Long term (current) use of insulin; Z68.29 Body mass index [BMI] 29.0-29.9, adult
CPT/HCPCS: 36415; 36430; 71045; 80048; 81001; 82040; 82947; 83735; 84134; 85025; 86850; 86900; 86901; 86920; 92523; 97110; 97116; 97129; 97163; 97167; 97530; 97542; J0456; J1644; J1815; J2185; J7050; P9016